=== PATIENT | male | born 1955 | race Caucasian/White ===

== ENCOUNTER → 2016-10-25 07:59 | Day surgery (SDC) | payer OTHER ==
[~2016-10-25 07:59] MED LIST: Acetaminophen TAB* 325 MG PO PRN; Buffered Lidocaine 1% SYR 3ML* 3 ML/SYR SYRINGE INTRADERM ONE; Midazolam* 1 MG/ML 2 ML VIAL (2 MG) ONE; fentaNYL* 50 MCG/ML 2 ML VIAL (100 MCG VIAL) ONE
[2016-10-25 10:05] VITALS: BP 142/83
--- NOTE | 2016-10-26 01:27 | OP ---
DATE OF OPERATION: 10/25/16 - [facility] DATE OF : 53 SURGEON: Kyle Hartman MD ANESTHESIOLOGIST: Toño Child MD ANESTHESIA: Monitored anesthesia care. PRE-OP DIAGNOSIS: Cataract of the right eye. POST-OP DIAGNOSIS: Cataract of the right eye. OPERATIVE PROCEDURE: Cataract extraction of the right eye. IMPLANTS: AU00T0 17.5 diopter lens to the right eye. COMPLICATIONS: None. DESCRIPTION OF PROCEDURE: The patient was given phenylephrine 2.5% and cyclopentolate 1% eye drops to the operative eye in the preoperative area. The patient was brought to the operating room, where a time-out was taken to identify the correct patient, site and side of the surgery. The patient's right eye was prepped and draped in the usual sterile fashion with 5% Betadine. A second time- out was taken to verify the correct patient, site, and side of surgery and correct lens selection. A lid speculum was placed to the right eye. A 1-mm paracentesis blade was used to make a clear corneal incision in the superotemporal position. Preservative-free 1% lidocaine was injected into the anterior chamber. DuoVisc was then injected into the anterior chamber. A 2.75-mm keratome blade was used to make a triplanar incision at the inferotemporal position. A cystotome was used to initiate a capsulorrhexis, which was completed with Utrata forceps in a continuous and curvilinear manner. Hydrodissection of the lens was then performed with a BSS on a cannula. The lens could be spun in the capsular bag. The phacoemulsification handpiece was then used with a wjngoy-aso-vudrorc technique to remove the nucleus in its entirety with 12.79 CDE. The I/A handpiece was then used to remove the residual cortical lens material. The DuoVisc was then injected to inflate the capsular bag. The planned AU00T0 17.5 diopter lens was then injected into the capsular bag. The residual DuoVisc was then removed from the eye with the I/A handpiece. The corneal incisions were then hydrated and no leaks occurred at physiologic pressure around 20 mmHg per palpation. The lid speculum was then removed and drapes removed. Maxitrol ointment was then placed to the surface of the operative eye. An adhesive patch and shield were then placed to the operative eye. The patient was taken to the postoperative area in stable condition. [id number]/[facility] #: [id number] LUKE
== END | disposition home or self-care (01) ==
LOC: OREAST 07:59
PROVIDERS: ATTEND Student in an Organized Health Care Education/Training Program
DX: H25.12 Age-related nuclear cataract, left eye (principal); H43.813 Vitreous degeneration, bilateral; I10 Essential (primary) hypertension; J45.909 Unspecified asthma, uncomplicated
CPT/HCPCS: J2250; J3010; V2632

== ENCOUNTER → 2016-11-01 09:27 | Day surgery (SDC) | payer OTHER ==
[~2016-11-01 09:27] MED LIST changes: +Cyclopentolate 1% OPTH.SOL* 2 ML BTL ONE; +Flurbiprofen 0.03% OPTH.SOL* 2.5 ML BTL ONE; +Lidocaine 1% MPF* 2 ML VIAL ONE; -Midazolam* 1 MG/ML 2 ML VIAL (2 MG) ONE; +Midazolam* 1 MG/ML 5 ML VIAL (5 MG) ONE; +Neomycin/Polymy/Dex OPHTH.OIN* 3.5 GM ONE; +Phenylephrine 2.5% OPTH.SOL* 2 ML BTL ONE; +Povidone Iodine 5% OPTH* 30 ML BTL ONE; +Tetracaine 0.5% OPTH.SOL 4 ML* 1 DROP BTL ONE; +acetaZOLAMIDE TAB* 250 MG ONE
[2016-11-01 12:10] VITALS: BP 157/82
--- NOTE | 2016-11-02 00:56 | OP ---
DATE OF OPERATION: 11/01/16 - [facility] DATE OF : 53 SURGEON: Kyle Hartman MD ANESTHESIOLOGIST: Samson Russo MD ANESTHESIA: Monitored anesthesia care. PRE-OP DIAGNOSIS: Cataract of left eye. POST-OP DIAGNOSIS: Cataract of left eye. OPERATIVE PROCEDURE: Cataract extraction of the left eye. IMPLANTS: SN60WF 18.0 diopter lens to the left eye. COMPLICATIONS: None. DESCRIPTION OF PROCEDURE: The patient was given phenylephrine 2.5% and cyclopentolate 1% eye drops to the operative eye in the preoperative area. The patient was brought to the operating room, where a time-out was taken to identify the correct patient, site and side of the surgery. The patient's left eye was prepped and draped in the usual sterile fashion with 5% Betadine. A second time- out was taken to verify the correct patient, site and side of the surgery, and correct lens selection. A lid speculum was placed to the left eye. A 1-mm paracentesis blade was used to make a clear corneal incision in the inferotemporal position. Preservative-free 1% lidocaine was injected into the anterior chamber. DuoVisc was then injected into the anterior chamber. A 2.75-mm keratome blade was used to make a triplanar incision at the superotemporal position. A cystotome was used to initiate a capsulorrhexis, which was completed with Utrata forceps in a continuous and curvilinear manner. Hydrodissection of the lens was then performed with BSS on a cannula. The lens could be spun in the capsular bag. The phacoemulsification handpiece was then used in a aifizk-pre-dzyllzv technique to remove the nucleus in its entirety with 12.34 CDE. The I/A handpiece then was used to remove the residual cortical lens material. DuoVisc was then injected to inflate the capsular bag. The planned SN60WF 18.0 diopter lens was then injected into the capsular bag. The residual DuoVisc was then removed from the eye with the I/A handpiece. The corneal incisions were then hydrated and no leaks occurred at physiologic pressure around 20 mmHg per palpation. The lid speculum was then removed and drapes removed. Maxitrol ointment was then placed on the surface of the operative eye. An adhesive patch and shield were then placed on the operative eye. The patient was taken to the postoperative area in stable condition. [id number]/[facility] #: [id number]
== END | disposition home or self-care (01) ==
LOC: OREAST 09:27
PROVIDERS: ATTEND Student in an Organized Health Care Education/Training Program
DX: H25.12 Age-related nuclear cataract, left eye (principal); H43.813 Vitreous degeneration, bilateral; I10 Essential (primary) hypertension; J45.909 Unspecified asthma, uncomplicated; E66.01 Morbid (severe) obesity due to excess calories
CPT/HCPCS: A9270-GY; J2250; J3010; V2632

== ENCOUNTER 2021-04-22 18:39 | Observation (INO) ==
[2021-04-22 19:39] LABS: ABS Eosinophils 0.2 10^3/ul (0-0.6); ABS Lymphocytes 1.5 10^3/ul (1.0-4.8); ABS Neutrophils 6.6 10^3/ul (1.5-7.7); Eosinophil % 1.7 %; Hematocrit 45 % (42-52); Hemoglobin 14.7 g/dL (14.0-18.0); Lymphocyte % 16.2 %; Mean Corpuscular HGB Conc 33 g/dL (31-36); Mean Corpuscular Hemoglobin 30 pg (27-31); Mean Corpuscular Volume 92 fL (80-94); Mean Platelet Volume 7.5 fL (7.4-10.4); Platelet Count 296 10^3/uL (150-450); Red Cell Distribution Width 15 % (10-15); White Blood Count 9.4 10^3/uL (3.5-10.8)
[2021-04-22 19:51] LABS: INR 1.04 (0.86-1.15)
[2021-04-22 19:57] LABS: Albumin 4.5 g/dL (3.2-5.2); Albumin/Globulin Ratio 1.5 (1-3); Calcium 9.2 mg/dL (8.6-10.3); EGFR African American 51.8 (>60); EGFR Non-African American 42.8 (>60); Potassium 4.8 mmol/L (3.5-5.0); Total Bilirubin 0.4 mg/dL (0.2-1.0); Total Protein 7.5 g/dL (6.4-8.9)
[2021-04-22 19:59] LABS: Troponin I 0.01 ng/mL (<0.03)
[2021-04-22] MEDS ORDERED: HYDROcodone/ACETAMIN 5/325 mg TAB PO PRN (23:28)
[2021-04-22] MEDS: Enoxaparin 40 MG/0.4 ML SYR SUBCUT SCH (23:41)
[2021-04-23 03:39] LABS: ABS Eosinophils 0.2 10^3/ul (0-0.6); ABS Lymphocytes 1.8 10^3/ul (1.0-4.8); ABS Monocytes 0.7 10^3/ul (0-0.8); ABS Neutrophils 6.1 10^3/ul (1.5-7.7); Eosinophil % 2.3 %; Hematocrit 45 % (42-52); Hemoglobin 14.8 g/dL (14.0-18.0); Lymphocyte % 20.2 %; Mean Corpuscular HGB Conc 33 g/dL (31-36); Mean Corpuscular Hemoglobin 30 pg (27-31); Mean Corpuscular Volume 92 fL (80-94); Mean Platelet Volume 7.6 fL (7.4-10.4); Platelet Count 277 10^3/uL (150-450); Red Blood Count 4.86 10^6 /uL (4.18-5.48); Red Cell Distribution Width 14 % (10-15); White Blood Count 8.8 10^3/uL (3.5-10.8)
[2021-04-23 03:53] LABS: Calcium 9.1 mg/dL (8.6-10.3); EGFR African American 58.5 (>60); EGFR Non-African American 48.3 (>60); HDL Cholesterol 36.8 mg/dL; Potassium 4.2 mmol/L (3.5-5.0)
[2021-04-23 03:54] LABS: Troponin I 0.01 ng/mL (<0.03)
[2021-04-23] MEDS ORDERED: Perflutren Lipid Microsphere 3 ML VIAL ONE (08:01)
[2021-04-23] MEDS: Potassium Chlor 20 meq TAB.ER PO SCH ×2 (09:14→20:01)
[2021-04-23] MEDS ORDERED: Aminophylline 25 MG/ML VIAL ONE (09:49)
[2021-04-23] MEDS ORDERED: Regadenoson 0.4 MG/5 ML SYRINGE ONE (09:49)
[2021-04-23] MEDS: Enoxaparin 40 MG/0.4 ML SYR SUBCUT SCH (20:01)
[2021-04-24 06:58] LABS: ABS Eosinophils 0.1 10^3/ul (0-0.6); ABS Lymphocytes 2.1 10^3/ul (1.0-4.8); ABS Monocytes 0.8 10^3/ul (0-0.8); ABS Neutrophils 6.5 10^3/ul (1.5-7.7); Eosinophil % 1.4 %; Hematocrit 43 % (42-52); Hemoglobin 14.3 g/dL (14.0-18.0); Mean Corpuscular HGB Conc 34 g/dL (31-36); Mean Corpuscular Hemoglobin 30 pg (27-31); Mean Corpuscular Volume 91 fL (80-94); Mean Platelet Volume 7.8 fL (7.4-10.4); Platelet Count 286 10^3/uL (150-450); Red Blood Count 4.69 10^6 /uL (4.18-5.48); Red Cell Distribution Width 14 % (10-15); White Blood Count 9.6 10^3/uL (3.5-10.8)
[2021-04-24 07:14] LABS: EGFR African American 63.4 (>60); EGFR Non-African American 52.4 (>60); HDL Cholesterol 34.9 mg/dL
[2021-04-24] MEDS: Potassium Chlor 20 meq TAB.ER PO SCH (08:51)
[2021-04-24 17:26] VITALS: BP 124/70
== END 2021-04-24 18:30 | disposition home or self-care (01) ==
LOC: ED 18:39 → SUATTDRO 23:54 → MEDTELE 23:54 → INTOOBSV 23:54
PROVIDERS: ADMIT Internal Medicine; ATTEND Hospitalist

== ENCOUNTER 2022-04-26 11:46 | Inpatient (IN) ==
[2022-04-27] MEDS ORDERED: Magnesium Hydroxide LIQ 30 ML UDC PO PRN (15:11)
[2022-04-27] MEDS ORDERED: Senna TAB 8.6 mg TAB PO PRN (15:11)
[2022-04-28 05:46] LABS: Hematocrit 40 % (42-52); Mean Corpuscular HGB Conc 33 g/dL (31-36); Mean Corpuscular Hemoglobin 29 pg (27-31); Mean Corpuscular Volume 90 fL (80-94); Mean Platelet Volume 7.9 fL (7.4-10.4); Platelet Count 308 10^3/uL (150-450); Red Blood Count 4.47 10^6 /uL (4.18-5.48); Red Cell Distribution Width 15 % (10-15)
[2022-04-28 06:32] LABS: Albumin 3.5 g/dL (3.2-5.2); Albumin/Globulin Ratio 1.3 (1-3); Calcium 9.1 mg/dL (8.6-10.3); Globulin 2.7 g/dL (2-4); Potassium 4.4 mmol/L (3.5-5.0); Total Bilirubin 0.5 mg/dL (0.2-1.0); Total Protein 6.2 g/dL (6.4-8.9)
[2022-04-28 07:39] LABS: ABS Basophils 0.1 10^3/ul (0-0.2); ABS Eosinophils 0.2 10^3/ul (0-0.6); ABS Lymphocytes 1.7 10^3/ul (1.0-4.8); ABS Monocytes 0.9 10^3/ul (0-0.8); ABS Neutrophils 5.1 10^3/ul (1.5-7.7); Eosinophil % 2.1 %; Lymphocyte % 21.4 %; Nucleated Red Blood Cells % 0.1
[2022-04-28] MEDS: Aspirin EC 81 mg TAB.EC (enteric coated) PO SCH (09:47)
[2022-04-28] MEDS: CMCS: Prasugrel 10 mg TAB (NF) PO SCH (09:49)
[2022-04-28] MEDS: NFT: DAPAGLIFLOZIN 10 MG TAB (NF) PO SCH (11:35)
[2022-04-28] MEDS: Heparin 5000 UNITS/ML 1 mL VIAL SUBCUT SCH (20:20)
[2022-04-28] MEDS: HYDROcodone/ACETAMIN 5/325 mg TAB PO PRN (20:20)
[2022-04-29] MEDS: CMCS: Prasugrel 10 mg TAB (NF) PO SCH (09:22)
[2022-04-29] MEDS: Aspirin EC 81 mg TAB.EC (enteric coated) PO SCH (09:24)
[2022-04-29] MEDS: NFT: DAPAGLIFLOZIN 10 MG TAB (NF) PO SCH (09:25)
[2022-04-29] MEDS: Heparin 5000 UNITS/ML 1 mL VIAL SUBCUT SCH ×2 (10:35→20:59)
[2022-04-29] MEDS: HYDROcodone/ACETAMIN 5/325 mg TAB PO PRN (20:58)
[2022-04-30] MEDS: Aspirin EC 81 mg TAB.EC (enteric coated) PO SCH (08:38)
[2022-04-30] MEDS: Heparin 5000 UNITS/ML 1 mL VIAL SUBCUT SCH ×2 (08:38→20:50)
[2022-04-30] MEDS: CMCS: Prasugrel 10 mg TAB (NF) PO SCH (08:39)
[2022-04-30] MEDS: NFT: DAPAGLIFLOZIN 10 MG TAB (NF) PO SCH (08:39)
[2022-04-30] MEDS: Mometasone/Formoter 100/5 MDI INH SCH ×2 (14:35→20:48)
[2022-04-30] MEDS: HYDROcodone/ACETAMIN 5/325 mg TAB PO PRN (20:52)
[2022-05-01] MEDS: Mometasone/Formoter 100/5 MDI INH SCH ×2 (06:00→18:38)
[2022-05-01] MEDS ORDERED: Polyethylene Glycol 3350 17 GM PACKET PO PRN (09:07)
[2022-05-01] MEDS ORDERED: Polyethylene Glycol 3350 17 GM PACKET PO ONE (09:11)
[2022-05-01] MEDS: Aspirin EC 81 mg TAB.EC (enteric coated) PO SCH (10:22)
[2022-05-01] MEDS: CMCS: Prasugrel 10 mg TAB (NF) PO SCH (10:22)
[2022-05-01] MEDS: NFT: DAPAGLIFLOZIN 10 MG TAB (NF) PO SCH (10:23)
[2022-05-01] MEDS: Heparin 5000 UNITS/ML 1 mL VIAL SUBCUT SCH ×2 (10:23→20:59)
[2022-05-01] MEDS: HYDROcodone/ACETAMIN 5/325 mg TAB PO PRN (20:58)
[2022-05-01] MEDS: Senna TAB 8.6 mg TAB PO SCH (20:59)
[2022-05-02] MEDS: CMCS: Prasugrel 10 mg TAB (NF) PO SCH (08:05)
[2022-05-02] MEDS: Aspirin EC 81 mg TAB.EC (enteric coated) PO SCH (08:06)
[2022-05-02] MEDS: NFT: DAPAGLIFLOZIN 10 MG TAB (NF) PO SCH (08:12)
[2022-05-02] MEDS: Heparin 5000 UNITS/ML 1 mL VIAL SUBCUT SCH ×2 (08:13→20:58)
[2022-05-02] MEDS: Mometasone/Formoter 100/5 MDI INH SCH ×2 (08:14→19:52)
[2022-05-02] MEDS: HYDROcodone/ACETAMIN 5/325 mg TAB PO PRN (20:58)
[2022-05-02] MEDS: Senna TAB 8.6 mg TAB PO SCH (20:58)
[2022-05-03] MEDS: Mometasone/Formoter 100/5 MDI INH SCH ×2 (09:28→19:30)
[2022-05-03] MEDS: HYDROcodone/ACETAMIN 5/325 mg TAB PO PRN ×2 (09:30→21:29)
[2022-05-03] MEDS: Heparin 5000 UNITS/ML 1 mL VIAL SUBCUT SCH ×2 (09:31→21:32)
[2022-05-03] MEDS: Aspirin EC 81 mg TAB.EC (enteric coated) PO SCH (09:33)
[2022-05-03] MEDS: CMCS: Prasugrel 10 mg TAB (NF) PO SCH (09:34)
[2022-05-03] MEDS: NFT: DAPAGLIFLOZIN 10 MG TAB (NF) PO SCH (09:38)
[2022-05-03] MEDS: Senna TAB 8.6 mg TAB PO SCH (21:28)
[2022-05-04] MEDS: Mometasone/Formoter 100/5 MDI INH SCH ×2 (06:21→18:54)
[2022-05-04] MEDS: CMCS: Prasugrel 10 mg TAB (NF) PO SCH (09:24)
[2022-05-04] MEDS: HYDROcodone/ACETAMIN 5/325 mg TAB PO PRN ×2 (09:24→18:52)
[2022-05-04] MEDS: Aspirin EC 81 mg TAB.EC (enteric coated) PO SCH (09:24)
[2022-05-04] MEDS: Heparin 5000 UNITS/ML 1 mL VIAL SUBCUT SCH ×2 (09:25→21:26)
[2022-05-04] MEDS: NFT: DAPAGLIFLOZIN 10 MG TAB (NF) PO SCH (11:16)
[2022-05-04] MEDS: Senna TAB 8.6 mg TAB PO SCH (21:24)
[2022-05-05] MEDS: HYDROcodone/ACETAMIN 5/325 mg TAB PO PRN ×2 (00:44→23:02)
[2022-05-05 05:59] LABS: ABS Basophils 0.1 10^3/ul (0-0.2); ABS Eosinophils 0.2 10^3/ul (0-0.6); ABS Lymphocytes 1.4 10^3/ul (1.0-4.8); ABS Monocytes 0.8 10^3/ul (0-0.8); ABS Neutrophils 4.4 10^3/ul (1.5-7.7); Eosinophil % 2.4 %; Hematocrit 39 % (42-52); Hemoglobin 12.7 g/dL (14.0-18.0); Mean Corpuscular HGB Conc 32 g/dL (31-36); Mean Corpuscular Hemoglobin 29 pg (27-31); Mean Corpuscular Volume 91 fL (80-94); Mean Platelet Volume 8.2 fL (7.4-10.4); Nucleated Red Blood Cells % 0.1; Platelet Count 227 10^3/uL (150-450); Red Blood Count 4.33 10^6 /uL (4.18-5.48); Red Cell Distribution Width 15 % (10-15); White Blood Count 6.8 10^3/uL (3.5-10.8)
[2022-05-05] MEDS: Mometasone/Formoter 100/5 MDI INH SCH ×2 (06:09→20:01)
[2022-05-05 06:21] LABS: Albumin 3.5 g/dL (3.2-5.2); Albumin/Globulin Ratio 1.4 (1-3); Globulin 2.5 g/dL (2-4); Total Bilirubin 0.4 mg/dL (0.2-1.0)
[2022-05-05 06:24] LABS: Potassium 5.2 mmol/L (3.5-5.0)
[2022-05-05] MEDS: Heparin 5000 UNITS/ML 1 mL VIAL SUBCUT SCH ×2 (10:09→20:03)
[2022-05-05] MEDS: Aspirin EC 81 mg TAB.EC (enteric coated) PO SCH (10:12)
[2022-05-05] MEDS: CMCS: Prasugrel 10 mg TAB (NF) PO SCH (10:13)
[2022-05-05] MEDS: NFT: DAPAGLIFLOZIN 10 MG TAB (NF) PO SCH (10:16)
[2022-05-05] MEDS ORDERED: Hemorrhoidal OINT 1 TUBE PR PRN (19:10)
[2022-05-05] MEDS: Senna TAB 8.6 mg TAB PO SCH (20:03)
[2022-05-06] MEDS: Aspirin EC 81 mg TAB.EC (enteric coated) PO SCH (08:11)
[2022-05-06] MEDS: CMCS: Prasugrel 10 mg TAB (NF) PO SCH (08:12)
[2022-05-06] MEDS: Mometasone/Formoter 100/5 MDI INH SCH ×2 (08:13→20:41)
[2022-05-06] MEDS: NFT: DAPAGLIFLOZIN 10 MG TAB (NF) PO SCH (08:13)
[2022-05-06] MEDS: Heparin 5000 UNITS/ML 1 mL VIAL SUBCUT SCH ×2 (08:15→20:34)
[2022-05-06] MEDS: Senna TAB 8.6 mg TAB PO SCH (20:34)
[2022-05-06] MEDS: HYDROcodone/ACETAMIN 5/325 mg TAB PO PRN (23:27)
[2022-05-07 05:32] VITALS: BP 136/72
[2022-05-07] MEDS: Mometasone/Formoter 100/5 MDI INH SCH (07:44)
[2022-05-07] MEDS: Aspirin EC 81 mg TAB.EC (enteric coated) PO SCH (07:45)
[2022-05-07] MEDS: CMCS: Prasugrel 10 mg TAB (NF) PO SCH (07:45)
[2022-05-07] MEDS: Heparin 5000 UNITS/ML 1 mL VIAL SUBCUT SCH (07:45)
[2022-05-07] MEDS: NFT: DAPAGLIFLOZIN 10 MG TAB (NF) PO SCH (07:46)
== END 2022-05-07 13:00 | disposition home health service (06) | DRG 281 ==
LOC: PMRU 04-27 14:26
PROVIDERS: ADMIT Physical Medicine & Rehabilitation; ATTEND Physical Medicine & Rehabilitation

== ENCOUNTER 2022-06-06 09:19 | Observation (INO) ==
[2022-06-06 10:13] LABS: Hematocrit 36 % (42-52); Hemoglobin 11.7 g/dL (14.0-18.0); Mean Corpuscular HGB Conc 32 g/dL (31-36); Mean Corpuscular Hemoglobin 28 pg (27-31); Mean Corpuscular Volume 88 fL (80-94); Red Blood Count 4.14 10^6 /uL (4.18-5.48); Red Cell Distribution Width 15 % (10-15)
[2022-06-06 10:22] LABS: High Sens Troponin Baseline 10 pg/mL (<20)
[2022-06-06 10:32] LABS: ABS Basophils 0.1 10^3/ul (0-0.2); ABS Eosinophils 0.2 10^3/ul (0-0.6); ABS Lymphocytes 1.5 10^3/ul (1.0-4.8); ABS Neutrophils 11.9 10^3/ul (1.5-7.7); Eosinophil % 1.4 %; Nucleated Red Blood Cells % 0.1; Platelet Count Platelets clumped. 10^3/uL (150-450); White Blood Count 14.6 10^3/uL (3.5-10.8)
[2022-06-06 11:05] LABS: ALT 16 U/L (7-52); Albumin 3.3 g/dL (3.2-5.2); Alkaline Phosphatase 70 U/L (35-149); Blood Urea Nitrogen 31 mg/dL (6-24); CO2 Carbon Dioxide 27 mmol/L (22-32); Calcium 8.8 mg/dL (8.6-10.3); Chloride 101 mmol/L (101-111); Globulin 3.3 g/dL (2-4); Glucose 121 mg/dL (70-100); Sodium 139 mmol/L (135-145); Total Protein 6.6 g/dL (6.4-8.9); eGFR CKD-EPI 63.1 (>60)
[2022-06-06 11:10] LABS: Anion Gap 11 mmol/L (2-11)
[2022-06-06 11:18] LABS: TSH Ultra Thyroid Stim Horm 1.89 mcIU/mL (0.34-5.60)
[2022-06-06] MEDS ORDERED: Nitro 2% OINT (Nitroglycerin) 1 INCH/PAK TOPICAL ONE (12:01)
[2022-06-06 12:04] LABS: Magnesium 1.6 mg/dL (1.9-2.7); Potassium Redraw 3.9 mmol/L (3.5-5.0)
[2022-06-06] MEDS ORDERED: Iohexol 350 (CONTRAST) 500 ML MDV IV ONE (12:33)
[2022-06-06] MEDS ORDERED: Al Hydrox/Mg Hydrox/Simet LIQ 30 ML UDC PO ONE (12:45)
[2022-06-06] MEDS ORDERED: Magnesium Sulfate 2 gm BAG 2 GM/50 ML BAG IVPB ONE ×2 (13:54→17:04)
[2022-06-06] MEDS ORDERED: Acetaminophen IV 1 GM/100ML 1,000 MG/100 ML BAG IV ONE (13:55)
[2022-06-06] MEDS ORDERED: Lactated Ringers 1000 ml BAG 1,000 ML IV SCH ×3 (15:00→17:00)
[2022-06-06] MEDS ORDERED: Senna TAB 8.6 mg TAB PO PRN (16:49)
[2022-06-06] MEDS ORDERED: Enoxaparin 40 MG/0.4 ML SYR SUBCUT SCH (18:00)
[2022-06-06 18:02] LABS: C Reactive Protein 64.62 mg/L (<8.01)
[2022-06-06] MEDS: Polyethylene Glycol 3350 17 GM PACKET PO SCH (19:40)
[2022-06-06] MEDS: HYDROcodone/ACETAMIN 5/325 mg TAB PO PRN (21:36)
[2022-06-06 22:09] LABS: Urine Appearance Cloudy; Urine Bacteria 1+ (Absent); Urine Bilirubin Negative (Negative); Urine Blood 1+ (Negative); Urine Color Yellow; Urine Glucose Negative (Negative); Urine Ketones Negative (Negative); Urine Nitrite Positive (Negative); Urine Protein 1+(30 mg/dL) (Negative); Urine Red Blood Cell 3+(>10/hpf) (Absent); Urine Squamous Epithelial Cell Present (Absent); Urine Urobilinogen Negative (Negative); Urine White Blood Cell 3+(>20/hpf) (Absent)
[2022-06-07 06:17] LABS: ABS Eosinophils 0.1 10^3/ul (0-0.6); ABS Lymphocytes 1.4 10^3/ul (1.0-4.8); ABS Monocytes 1.1 10^3/ul (0-0.8); ABS Neutrophils 6.4 10^3/ul (1.5-7.7); Hematocrit 31 % (42-52); Hemoglobin 10.2 g/dL (14.0-18.0); Lymphocyte % 15.8 %; Mean Corpuscular HGB Conc 33 g/dL (31-36); Mean Corpuscular Hemoglobin 29 pg (27-31); Mean Corpuscular Volume 88 fL (80-94); Mean Platelet Volume 7.3 fL (7.4-10.4); Platelet Count 333 10^3/uL (150-450); Red Blood Count 3.56 10^6 /uL (4.18-5.48); Red Cell Distribution Width 15 % (10-15)
[2022-06-07 08:04] LABS: Calcium 8.4 mg/dL (8.6-10.3); Potassium 4.3 mmol/L (3.5-5.0); eGFR CKD-EPI 61.3 (>60)
[2022-06-07] MEDS ORDERED: CMCS: Prasugrel 10 mg TAB (NF) PO SCH (09:00)
[2022-06-07 09:02] LABS: Magnesium 2.2 mg/dL (1.9-2.7)
[2022-06-07] MEDS: Polyethylene Glycol 3350 17 GM PACKET PO SCH (09:53)
[2022-06-07] MEDS: HYDROcodone/ACETAMIN 5/325 mg TAB PO PRN (10:09)
[2022-06-07 15:53] VITALS: BP 117/68
== END 2022-06-07 18:00 | disposition home or self-care (01) ==
LOC: ED 09:19 → EDHOLD 09:19 → MEDTELE 22:05
PROVIDERS: ADMIT Internal Medicine; ATTEND Internal Medicine

== ENCOUNTER 2022-07-28 17:08 | Inpatient (IN) ==
[2022-07-28] MEDS ORDERED: Lactated Ringers SEPSIS* BAG 2,120 ML IV ONE (19:51)
[2022-07-28] MEDS ORDERED: fentaNYL 100 mcg/2 ml 50 MCG/ML VIAL IV ONE (19:53)
[2022-07-28 20:46] LABS: ABS Lymphocytes 0.6 10^3/ul (1.0-4.8); ABS Monocytes 0.9 10^3/ul (0-0.8); ABS Neutrophils 13.7 10^3/ul (1.5-7.7); Eosinophil % 0.2 %; Hematocrit 41 % (42-52); Hemoglobin 13.2 g/dL (14.0-18.0); Lymphocyte % 4.2 %; Mean Corpuscular HGB Conc 32 g/dL (31-36); Mean Corpuscular Hemoglobin 27 pg (27-31); Mean Corpuscular Volume 84 fL (80-94); Mean Platelet Volume 7.1 fL (7.4-10.4); Platelet Count 390 10^3/uL (150-450); Red Blood Count 4.92 10^6 /uL (4.18-5.48); Red Cell Distribution Width 15 % (10-15); White Blood Count 15.2 10^3/uL (3.5-10.8)
[2022-07-28 21:12] LABS: INR 1.03 (0.89-1.11)
[2022-07-28] MEDS ORDERED: cefTRIAXone 1 gm/50 mL D5W 1 GM/50 ML BAG IV ONE (21:12)
[2022-07-28 21:30] LABS: Albumin 4.2 g/dL (3.2-5.2); Albumin/Globulin Ratio 1.4 (1-3); Calcium 9.4 mg/dL (8.6-10.3); Globulin 2.9 g/dL (2-4); Potassium 4.4 mmol/L (3.5-5.0); Total Bilirubin 0.4 mg/dL (0.2-1.0); Total Protein 7.1 g/dL (6.4-8.9); eGFR CKD-EPI 38.4 (>60)
[2022-07-28 22:01] LABS: C Reactive Protein 72.25 mg/L (<8.01)
[2022-07-28 22:19] LABS: High Sensitivity Troponin 1 Hr 14 pg/mL (<20)
[2022-07-28 23:49] LABS: Urine Color Red
[2022-07-28 23:50] LABS: Urine Appearance Turbid
[2022-07-29 00:21] LABS: Urine Specific Gravity 1.019 (1.002-1.030)
[2022-07-29] MEDS ORDERED: Ondansetron 4 mg VIAL 2 MG/ML 2 ml VIAL IV PRN (00:28)
[2022-07-29] MEDS ORDERED: Senna TAB 8.6 mg TAB PO PRN (00:32)
[2022-07-29] MEDS ORDERED: Magnesium Hydroxide LIQ 30 ML UDC PO PRN (00:32)
[2022-07-29] MEDS ORDERED: Polyethylene Glycol 3350 17 GM PACKET PO PRN (00:32)
[2022-07-29 00:50] LABS: Urine Bacteria 3+ (Absent); Urine Red Blood Cell 3+(>10/hpf) (Absent); Urine Squamous Epithelial Cell Present (Absent); Urine White Blood Cell 3+(>20/hpf) (Absent)
[2022-07-29] MEDS ORDERED: NS 0.9% 1000 ml BAG 1,000 ML IV ONE (05:29)
[2022-07-29 07:39] LABS: Hematocrit 36 % (42-52); Hemoglobin 11.3 g/dL (14.0-18.0); Mean Corpuscular HGB Conc 32 g/dL (31-36); Mean Corpuscular Hemoglobin 27 pg (27-31); Mean Corpuscular Volume 84 fL (80-94); Mean Platelet Volume 6.8 fL (7.4-10.4); Platelet Count 331 10^3/uL (150-450); Red Blood Count 4.23 10^6 /uL (4.18-5.48); Red Cell Distribution Width 15 % (10-15); White Blood Count 14.2 10^3/uL (3.5-10.8)
[2022-07-29] MEDS: Magnesium Hydroxide LIQ 30 ML UDC PO SCH ×2 (09:50→22:46)
[2022-07-29] MEDS: CMCS: Prasugrel 10 mg TAB (NF) PO SCH (09:50)
[2022-07-29] MEDS: Aspirin EC 81 mg TAB.EC (enteric coated) PO SCH (09:50)
[2022-07-29 10:00] LABS: ABS Monocytes 1.6 10^3/ul (0-0.8); ABS Neutrophils 11.5 10^3/ul (1.5-7.7); Eosinophil % 0.1 %; Lymphocyte % 7.4 %
[2022-07-29 10:29] LABS: Calcium 8.4 mg/dL (8.6-10.3); Potassium 4.4 mmol/L (3.5-5.0); eGFR CKD-EPI 34.4 (>60)
[2022-07-29] MEDS: Cefepime 2 GM in Dextrose 2 GM/50 ML BAG IV SCH ×2 (11:33→22:59)
[2022-07-29] MEDS: HYDROcodone/ACETAMIN 5/325 mg TAB PO PRN ×2 (11:35→22:49)
[2022-07-29] MEDS: Mometasone/Formoter 100/5 MDI INH SCH ×2 (13:56→20:22)
[2022-07-29] MEDS: NS 0.9% 1000 ml BAG 1,000 ML IV SCH (14:42)
[2022-07-29] MEDS ORDERED: cefTRIAXone 2 gm/50 mL D5W 2 GM/50 ML BAG IV SCH (23:00)
[2022-07-30] MEDS: NS 0.9% 1000 ml BAG 1,000 ML IV SCH ×2 (04:17→12:15)
[2022-07-30 06:12] LABS: Hematocrit 36 % (42-52); Hemoglobin 11.6 g/dL (14.0-18.0); Mean Corpuscular HGB Conc 32 g/dL (31-36); Mean Corpuscular Hemoglobin 27 pg (27-31); Mean Corpuscular Volume 85 fL (80-94); Mean Platelet Volume 7.5 fL (7.4-10.4); Platelet Count 301 10^3/uL (150-450); Red Blood Count 4.28 10^6 /uL (4.18-5.48); Red Cell Distribution Width 15 % (10-15); White Blood Count 14.5 10^3/uL (3.5-10.8)
[2022-07-30 06:15] LABS: ABS Eosinophils 0.1 10^3/ul (0-0.6); ABS Lymphocytes 1.1 10^3/ul (1.0-4.8); ABS Monocytes 1.6 10^3/ul (0-0.8); ABS Neutrophils 11.7 10^3/ul (1.5-7.7); Eosinophil % 0.4 %; Lymphocyte % 7.4 %
[2022-07-30 06:24] LABS: Calcium 8.4 mg/dL (8.6-10.3); Potassium 4.5 mmol/L (3.5-5.0); eGFR CKD-EPI 25.2 (>60)
[2022-07-30] MEDS ORDERED: NS 0.9% 1000 ml BAG 1,000 ML IV ONE (07:17)
[2022-07-30] MEDS: Mometasone/Formoter 100/5 MDI INH SCH ×2 (07:43→19:40)
[2022-07-30] MEDS: Aspirin EC 81 mg TAB.EC (enteric coated) PO SCH (08:20)
[2022-07-30] MEDS: CMCS: Prasugrel 10 mg TAB (NF) PO SCH (08:21)
[2022-07-30] MEDS: Magnesium Hydroxide LIQ 30 ML UDC PO SCH ×2 (08:21→21:44)
[2022-07-30] MEDS: Cefepime 2 GM in Dextrose 2 GM/50 ML BAG IV SCH (12:12)
[2022-07-30] MEDS: HYDROcodone/ACETAMIN 5/325 mg TAB PO PRN (21:28)
[2022-07-30] MEDS: Cefepime 1 GM in Dextrose 1 GM/50 ML BAG IV SCH (23:24)
[2022-07-31] MEDS: Mometasone/Formoter 100/5 MDI INH SCH ×2 (07:16→20:16)
[2022-07-31 08:21] LABS: ABS Eosinophils 0.2 10^3/ul (0-0.6); ABS Lymphocytes 1.1 10^3/ul (1.0-4.8); ABS Monocytes 1.3 10^3/ul (0-0.8); Hematocrit 33 % (42-52); Hemoglobin 10.7 g/dL (14.0-18.0); Lymphocyte % 10.2 %; Mean Corpuscular HGB Conc 32 g/dL (31-36); Mean Corpuscular Hemoglobin 27 pg (27-31); Mean Corpuscular Volume 85 fL (80-94); Mean Platelet Volume 7.2 fL (7.4-10.4); Platelet Count 280 10^3/uL (150-450); Red Blood Count 3.94 10^6 /uL (4.18-5.48); Red Cell Distribution Width 15 % (10-15); White Blood Count 10.6 10^3/uL (3.5-10.8)
[2022-07-31] MEDS: HYDROcodone/ACETAMIN 5/325 mg TAB PO PRN (08:47)
[2022-07-31] MEDS: Magnesium Hydroxide LIQ 30 ML UDC PO SCH (08:52)
[2022-07-31] MEDS: Aspirin EC 81 mg TAB.EC (enteric coated) PO SCH (08:53)
[2022-07-31] MEDS: CMCS: Prasugrel 10 mg TAB (NF) PO SCH (08:53)
[2022-07-31 09:02] LABS: Calcium 8.2 mg/dL (8.6-10.3); Potassium 4.7 mmol/L (3.5-5.0); eGFR CKD-EPI 19.1 (>60)
[2022-07-31 10:00] LABS: PCO2 Arterial 43 mmHg (35-45); PO2 Arterial 99 mmHg (80-100)
[2022-07-31] MEDS: HYDROmorphone 0.5 MG/0.5 ML SYRINGE IV SLOW PU PRN ×2 (10:53→15:33)
[2022-07-31] MEDS: Cefepime 1 GM in Dextrose 1 GM/50 ML BAG IV SCH (10:58)
[2022-07-31 15:41] VITALS: BP 128/73
== END 2022-07-31 16:15 | disposition short-term general hospital (02) | DRG 689 ==
LOC: ED 17:08 → EDHOLD 07-29 00:28 → SUATTDRO 07-29 00:28 → MEDTELE 07-29 08:26
PROVIDERS: ADMIT Student in an Organized Health Care Education/Training Program; ATTEND Internal Medicine

== ENCOUNTER 2023-01-12 10:49 | Inpatient (IN) ==
[2023-01-12 12:57] LABS: ABS Eosinophils 0.1 10^3/uL (0.0-0.5); ABS Lymphocytes 1.2 10^3/uL (1.0-4.8); ABS Monocytes 1.3 10^3/uL (0.0-1.1); ABS Neutrophils 9.8 10^3/uL (1.5-7.6); Eosinophil % 0.6 %; Hematocrit 36.3 % (38-53); Hemoglobin 11.7 g/dL (13.2-16.3); Lymphocyte % 9.8 %; Mean Corpuscular Hemoglobin 25.6 pg (27-33); Mean Corpuscular Hgb Conc 32.2 g/dL (31-36); Mean Corpuscular Volume 79.3 fL (80-97); Mean Platelet Volume 7.1 fL (7.5-11.2); Platelet Count 501 10^3/uL (150-450); Red Blood Count 4.57 10^6/uL (4.06-5.63); Red Cell Distribution Width 16.7 % (12-17); White Blood Count 12.4 10^3/uL (3.6-10.2)
[2023-01-12 13:40] LABS: Albumin 3.7 g/dL (3.2-5.2); C Reactive Protein 141.73 mg/L (<8.01); Calcium 9.4 mg/dL (8.6-10.3); Creatinine, Serum 1.03 mg/dL (0.67-1.17); Globulin 3.7 g/dL (2-4); Potassium 4.2 mmol/L (3.5-5.0); Total Bilirubin 0.4 mg/dL (0.2-1.0); Total Protein 7.4 g/dL (6.4-8.9); eGFR CKD-EPI 79.1 (>60)
[2023-01-12] MEDS ORDERED: Iohexol 350 (CONTRAST) 500 ML MDV IV ONE (13:55)
[2023-01-12 14:23] LABS: Activated Partial Thrombo Time 29.6 seconds (26.0-38.0); INR 1.22 (0.88-1.18)
[2023-01-12 14:33] LABS: High Sensitivity Troponin 1 Hr 16 pg/mL (<20)
[2023-01-12] MEDS ORDERED: fentaNYL 100 mcg/2 ml 50 MCG/ML VIAL IV SLOW PU ONE (15:08)
[2023-01-12] MEDS ORDERED: Acetaminophen IV 1 GM/100ML 1,000 MG/100 ML BAG IV ONE (15:08)
[2023-01-12 15:15] LABS: Urine Appearance Clear; Urine Bilirubin Negative (Negative); Urine Blood Negative (Negative); Urine Color Yellow; Urine Glucose Negative (Negative); Urine Ketones Negative (Negative); Urine Nitrite Negative (Negative); Urine Protein 1+(30 mg/dL) (Negative); Urine Urobilinogen Negative (Negative)
[2023-01-12 15:24] LABS: Urine Bacteria Absent (Absent); Urine Red Blood Cell Absent (Absent); Urine White Blood Cell Trace(0-5/hpf) (Absent)
[2023-01-12] MEDS ORDERED: cefTRIAXone 2 gm/50 mL D5W 2 GM/50 ML BAG IV ONE (16:01)
[2023-01-12] MEDS ORDERED: Morphine 4 MG/ML VIAL (1 ml) IV ONE (18:12)
[2023-01-12] MEDS: Enoxaparin 40 MG/0.4 ML SYR SUBCUT SCH (18:17)
[2023-01-12] MEDS: HYDROcodone/ACETAMIN 5/325 mg TAB PO PRN (21:16)
[2023-01-12] MEDS: HYDROmorphone 1 MG/1 ML SYRINGE IV SLOW PU PRN (22:48)
[2023-01-13] MEDS: HYDROmorphone 1 MG/1 ML SYRINGE IV SLOW PU PRN ×4 (02:47→23:16)
[2023-01-13] MEDS: HYDROcodone/ACETAMIN 5/325 mg TAB PO PRN ×3 (04:55→18:13)
[2023-01-13 06:01] LABS: ABS Eosinophils 0.2 10^3/uL (0.0-0.5); ABS Lymphocytes 1.1 10^3/uL (1.0-4.8); ABS Monocytes 0.9 10^3/uL (0.0-1.1); Eosinophil % 2.5 %; Hematocrit 34.2 % (38-53); Hemoglobin 11.2 g/dL (13.2-16.3); Lymphocyte % 13.7 %; Mean Corpuscular Hemoglobin 26.1 pg (27-33); Mean Corpuscular Hgb Conc 32.7 g/dL (31-36); Mean Corpuscular Volume 79.9 fL (80-97); Mean Platelet Volume 6.9 fL (7.5-11.2); Platelet Count 430 10^3/uL (150-450); Red Blood Count 4.28 10^6/uL (4.06-5.63); Red Cell Distribution Width 17.2 % (12-17); White Blood Count 8.3 10^3/uL (3.6-10.2)
[2023-01-13 06:25] LABS: Calcium 8.8 mg/dL (8.6-10.3); Creatinine, Serum 0.98 mg/dL (0.67-1.17); Potassium 4.1 mmol/L (3.5-5.0)
[2023-01-13] MEDS ORDERED: PRAMIPEXOLE 0.25 MG PO SCH (09:00)
[2023-01-13] MEDS: Aspirin EC 81 mg TAB.EC (enteric coated) PO SCH (09:10)
[2023-01-13] MEDS: Enoxaparin 40 MG/0.4 ML SYR SUBCUT SCH (18:13)
[2023-01-14 06:49] LABS: Hemoglobin 11.4 g/dL (13.2-16.3); Mean Corpuscular Hemoglobin 25.8 pg (27-33); Mean Corpuscular Hgb Conc 32.5 g/dL (31-36); Mean Corpuscular Volume 79.4 fL (80-97); Platelet Count 482 10^3/uL (150-450); Red Blood Count 4.41 10^6/uL (4.06-5.63); Red Cell Distribution Width 16.8 % (12-17); White Blood Count 9.5 10^3/uL (3.6-10.2)
[2023-01-14 07:06] LABS: Calcium 8.9 mg/dL (8.6-10.3); Creatinine, Serum 0.89 mg/dL (0.67-1.17); Potassium 4.3 mmol/L (3.5-5.0); Uric Acid 7.3 mg/dL (4.4-7.6); eGFR CKD-EPI 93.3 (>60)
[2023-01-14] MEDS: HYDROmorphone 1 MG/1 ML SYRINGE IV SLOW PU PRN ×3 (07:19→21:36)
[2023-01-14] MEDS: Aspirin EC 81 mg TAB.EC (enteric coated) PO SCH (07:19)
[2023-01-14] MEDS ORDERED: HYDROmorphone 1 MG/1 ML SYRINGE IV SLOW PU ONE (15:17)
[2023-01-14] MEDS: Enoxaparin 40 MG/0.4 ML SYR SUBCUT SCH (17:22)
[2023-01-15] MEDS: HYDROmorphone 1 MG/1 ML SYRINGE IV SLOW PU PRN ×4 (08:22→23:48)
[2023-01-15] MEDS: Aspirin EC 81 mg TAB.EC (enteric coated) PO SCH (08:25)
[2023-01-15] MEDS: HYDROcodone/ACETAMIN 5/325 mg TAB PO PRN ×3 (09:34→23:41)
[2023-01-15] MEDS: Prasugrel 10 mg TAB (NF) PO SCH (11:20)
[2023-01-15] MEDS: Enoxaparin 40 MG/0.4 ML SYR SUBCUT SCH (18:30)
[2023-01-16] MEDS: Aspirin EC 81 mg TAB.EC (enteric coated) PO SCH (10:09)
[2023-01-16] MEDS: Prasugrel 10 mg TAB (NF) PO SCH (10:10)
[2023-01-16] MEDS: Enoxaparin 40 MG/0.4 ML SYR SUBCUT SCH (16:30)
[2023-01-16] MEDS: HYDROcodone/ACETAMIN 5/325 mg TAB PO PRN ×2 (16:30→23:13)
[2023-01-17] MEDS: Prasugrel 10 mg TAB (NF) PO SCH (09:42)
[2023-01-17] MEDS: Aspirin EC 81 mg TAB.EC (enteric coated) PO SCH (09:42)
[2023-01-17] MEDS: Enoxaparin 40 MG/0.4 ML SYR SUBCUT SCH (19:08)
[2023-01-18 05:32] VITALS: BP 151/76
[2023-01-18] MEDS: Aspirin EC 81 mg TAB.EC (enteric coated) PO SCH (08:47)
[2023-01-18] MEDS: Prasugrel 10 mg TAB (NF) PO SCH (08:48)
[2023-01-18] MEDS: HYDROcodone/ACETAMIN 5/325 mg TAB PO PRN (08:59)
== END 2023-01-18 10:00 | disposition home or self-care (01) | DRG 556 ==
LOC: EDHOLD 10:49 → ED 10:49 → MED 19:13
PROVIDERS: ADMIT Internal Medicine; ATTEND Internal Medicine

== ENCOUNTER 2023-02-02 10:37 | Inpatient (IN) ==
[2023-02-02] MEDS ORDERED: Acetaminophen IV 1 GM/100ML 1,000 MG/100 ML BAG IV ONE (11:12)
[2023-02-02] MEDS ORDERED: Cefepime 2 GM in Dextrose 2 GM/50 ML BAG IV ONE (11:17)
[2023-02-02 11:26] LABS: ABS Lymphocytes 0.6 10^3/uL (1.0-4.8); ABS Monocytes 0.8 10^3/uL (0.0-1.1); ABS Neutrophils 14.5 10^3/uL (1.5-7.6); Eosinophil % 0.3 %; Lymphocyte % 3.5 %; Mean Corpuscular Hemoglobin 26.5 pg (27-33); Mean Corpuscular Hgb Conc 32.5 g/dL (31-36); Mean Corpuscular Volume 81.6 fL (80-97); Mean Platelet Volume 7.8 fL (7.5-11.2); Platelet Count 281 10^3/uL (150-450); Red Cell Distribution Width 17.5 % (12-17); White Blood Count 15.9 10^3/uL (3.6-10.2)
[2023-02-02 11:36] LABS: Activated Partial Thrombo Time 29.2 seconds (26.0-38.0); INR 1.14 (0.88-1.18)
[2023-02-02 12:10] LABS: Albumin 4.2 g/dL (3.2-5.2); Albumin/Globulin Ratio 1.3 (1-3); C Reactive Protein 54.23 mg/L (<8.01); Calcium 8.9 mg/dL (8.6-10.3); Creatinine, Serum 1.11 mg/dL (0.67-1.17); Globulin 3.3 g/dL (2-4); Magnesium 1.6 mg/dL (1.9-2.7); Potassium 3.7 mmol/L (3.5-5.0); Total Bilirubin 0.4 mg/dL (0.2-1.0); Total Protein 7.5 g/dL (6.4-8.9); eGFR CKD-EPI 72.3 (>60)
[2023-02-02] MEDS ORDERED: NS 0.9% 1000 ml BAG 1,000 ML IV ONE (12:18)
[2023-02-02] MEDS ORDERED: Iohexol 350 (CONTRAST) 500 ML MDV IV ONE (12:32)
[2023-02-02 12:50] LABS: High Sensitivity Troponin 1 Hr 28 pg/mL (<20)
[2023-02-02] MEDS ORDERED: fentaNYL 100 mcg/2 ml 50 MCG/ML VIAL IV SLOW PU ONE (13:00)
[2023-02-02] MEDS: Lidocaine 4% GEL 10 GM TUBE TOPICAL ONE ×2 (13:25→13:30)
[2023-02-02 13:50] LABS: Urine Appearance Cloudy; Urine Bilirubin Negative (Negative); Urine Blood Negative (Negative); Urine Color Yellow; Urine Glucose Negative (Negative); Urine Ketones Negative (Negative); Urine Nitrite Negative (Negative); Urine Protein Negative (Negative); Urine Specific Gravity 1.017 (1.002-1.030); Urine Urobilinogen Negative (Negative)
[2023-02-02 14:04] LABS: Urine Bacteria 1+ (Absent); Urine Red Blood Cell 1+(3-5/hpf) (Absent); Urine Squamous Epithelial Cell Present (Absent); Urine White Blood Cell 3+(>20/hpf) (Absent)
[2023-02-02] MEDS: Enoxaparin 40 MG/0.4 ML SYR SUBCUT SCH (15:46)
[2023-02-02] MEDS ORDERED: Magnesium Sulfate IV 3 GM in NS 0.9% 100 ml BAG 100 ML IVPB ONE (16:31)
[2023-02-02] MEDS: HYDROcodone/ACETAMIN 5/325 mg TAB PO PRN ×2 (17:38→22:32)
[2023-02-02] MEDS: Mometasone/Formoter 100/5 MDI INH SCH (18:29)
[2023-02-02] MEDS: Morphine 2 MG/ML SYRINGE IV PRN ×2 (20:01→22:38)
[2023-02-02] MEDS: Aspirin EC 81 mg TAB.EC (enteric coated) PO SCH (22:33)
[2023-02-03] MEDS: Morphine 2 MG/ML SYRINGE IV PRN ×7 (02:03→22:50)
[2023-02-03] MEDS: HYDROcodone/ACETAMIN 5/325 mg TAB PO PRN (02:32)
[2023-02-03] MEDS: Nystatin TOP POWDER 15 GM BTL TOPICAL SCH ×3 (03:25→21:19)
[2023-02-03 03:39] LABS: ABS Lymphocytes 0.7 10^3/uL (1.0-4.8); ABS Monocytes 0.6 10^3/uL (0.0-1.1); ABS Neutrophils 8.7 10^3/uL (1.5-7.6); Hematocrit 36.4 % (38-53); Hemoglobin 12.1 g/dL (13.2-16.3); Lymphocyte % 6.7 %; Mean Corpuscular Hemoglobin 26.9 pg (27-33); Mean Corpuscular Hgb Conc 33.2 g/dL (31-36); Mean Corpuscular Volume 80.8 fL (80-97); Mean Platelet Volume 7.2 fL (7.5-11.2); Platelet Count 231 10^3/uL (150-450); Red Blood Count 4.51 10^6/uL (4.06-5.63); Red Cell Distribution Width 17.9 % (12-17)
[2023-02-03 03:56] LABS: Calcium 8.4 mg/dL (8.6-10.3); Creatinine, Serum 1.26 mg/dL (0.67-1.17); Potassium 3.3 mmol/L (3.5-5.0); eGFR CKD-EPI 62.1 (>60)
[2023-02-03] MEDS: Cefepime 2 GM in Dextrose 2 GM/50 ML BAG IV SCH ×2 (04:45→16:03)
[2023-02-03] MEDS: Mometasone/Formoter 100/5 MDI INH SCH ×2 (07:30→19:02)
[2023-02-03] MEDS: CMCS: Prasugrel 10 mg TAB (NF) PO SCH (10:22)
[2023-02-03] MEDS: Enoxaparin 40 MG/0.4 ML SYR SUBCUT SCH (16:06)
[2023-02-03] MEDS: Senna TAB 8.6 mg TAB PO SCH (21:18)
[2023-02-03] MEDS: Aspirin EC 81 mg TAB.EC (enteric coated) PO SCH (21:18)
[2023-02-03 23:49] LABS: ABS Eosinophils 0.2 10^3/uL (0.0-0.5); ABS Lymphocytes 1.1 10^3/uL (1.0-4.8); ABS Monocytes 0.9 10^3/uL (0.0-1.1); ABS Neutrophils 6.2 10^3/uL (1.5-7.6); ABS Nucleated RBC 0.01 10^3/ul; Eosinophil % 1.8 %; Hematocrit 34.2 % (38-53); Hemoglobin 11.2 g/dL (13.2-16.3); Lymphocyte % 12.9 %; Mean Corpuscular Hemoglobin 26.1 pg (27-33); Mean Corpuscular Hgb Conc 32.8 g/dL (31-36); Mean Corpuscular Volume 79.7 fL (80-97); Mean Platelet Volume 7.4 fL (7.5-11.2); Nucleated Red Blood Cells % 0.1 /100 WBC (0.0-0.4); Platelet Count 214 10^3/uL (150-450); Red Blood Count 4.29 10^6/uL (4.06-5.63); Red Cell Distribution Width 17.1 % (12-17); White Blood Count 8.4 10^3/uL (3.6-10.2)
[2023-02-04 00:05] LABS: Calcium 8.1 mg/dL (8.6-10.3); Creatinine, Serum 1.15 mg/dL (0.67-1.17); Potassium 3.4 mmol/L (3.5-5.0); eGFR CKD-EPI 69.3 (>60)
[2023-02-04] MEDS: Morphine 2 MG/ML SYRINGE IV PRN ×4 (03:17→20:25)
[2023-02-04] MEDS: Cefepime 2 GM in Dextrose 2 GM/50 ML BAG IV SCH ×2 (03:54→15:43)
[2023-02-04] MEDS: HYDROcodone/ACETAMIN 5/325 mg TAB PO PRN ×2 (04:44→12:59)
[2023-02-04] MEDS ORDERED: KCL 20 MEQ/100 ML IVPREMIX 20 MEQ/100 ML BAG IV ONE (05:42)
[2023-02-04] MEDS: Mometasone/Formoter 100/5 MDI INH SCH ×2 (07:20→19:27)
[2023-02-04] MEDS: Polyethylene Glycol 3350 17 GM PACKET PO SCH (09:42)
[2023-02-04] MEDS: CMCS: Prasugrel 10 mg TAB (NF) PO SCH (09:43)
[2023-02-04] MEDS: Nystatin TOP POWDER 15 GM BTL TOPICAL SCH ×2 (09:44→20:26)
[2023-02-04] MEDS: Enoxaparin 40 MG/0.4 ML SYR SUBCUT SCH (15:43)
[2023-02-04] MEDS: Aspirin EC 81 mg TAB.EC (enteric coated) PO SCH (20:24)
[2023-02-04] MEDS: Senna TAB 8.6 mg TAB PO SCH (20:25)
[2023-02-05] MEDS: Morphine 2 MG/ML SYRINGE IV PRN ×2 (02:14→08:15)
[2023-02-05] MEDS: Cefepime 2 GM in Dextrose 2 GM/50 ML BAG IV SCH ×2 (04:03→15:22)
[2023-02-05] MEDS: Mometasone/Formoter 100/5 MDI INH SCH ×2 (06:55→19:54)
[2023-02-05] MEDS: HYDROcodone/ACETAMIN 5/325 mg TAB PO PRN ×2 (07:29→15:22)
[2023-02-05] MEDS: Polyethylene Glycol 3350 17 GM PACKET PO SCH (08:18)
[2023-02-05] MEDS: CMCS: Prasugrel 10 mg TAB (NF) PO SCH (08:19)
[2023-02-05 09:04] LABS: Calcium 8.7 mg/dL (8.6-10.3); Creatinine, Serum 0.86 mg/dL (0.67-1.17); Potassium 3.8 mmol/L (3.5-5.0); eGFR CKD-EPI 94.3 (>60)
[2023-02-05] MEDS: Nystatin TOP POWDER 15 GM BTL TOPICAL SCH ×2 (09:19→21:37)
[2023-02-05] MEDS: Lidocaine PATCH 5% PATCH TRANSDERM SCH (09:20)
[2023-02-05] MEDS ORDERED: Potassium Chlor 20 meq TAB.ER PO ONE (09:32)
[2023-02-05] MEDS: Enoxaparin 40 MG/0.4 ML SYR SUBCUT SCH (15:22)
[2023-02-05] MEDS: Aspirin EC 81 mg TAB.EC (enteric coated) PO SCH (20:30)
[2023-02-05] MEDS: Senna TAB 8.6 mg TAB PO SCH (20:40)
[2023-02-06] MEDS: Morphine 2 MG/ML SYRINGE IV PRN ×3 (02:45→22:47)
[2023-02-06] MEDS: Cefepime 2 GM in Dextrose 2 GM/50 ML BAG IV SCH ×2 (04:02→15:40)
[2023-02-06] MEDS: Mometasone/Formoter 100/5 MDI INH SCH ×2 (06:53→20:51)
[2023-02-06] MEDS: Polyethylene Glycol 3350 17 GM PACKET PO SCH (08:14)
[2023-02-06] MEDS: Lidocaine PATCH 5% PATCH TRANSDERM SCH (08:15)
[2023-02-06] MEDS: CMCS: Prasugrel 10 mg TAB (NF) PO SCH (08:16)
[2023-02-06] MEDS: Nystatin TOP POWDER 15 GM BTL TOPICAL SCH ×2 (08:16→22:47)
[2023-02-06] MEDS: Enoxaparin 40 MG/0.4 ML SYR SUBCUT SCH (15:40)
[2023-02-06] MEDS: HYDROcodone/ACETAMIN 5/325 mg TAB PO PRN (15:49)
[2023-02-06] MEDS: Aspirin EC 81 mg TAB.EC (enteric coated) PO SCH (22:42)
[2023-02-06] MEDS: Senna TAB 8.6 mg TAB PO SCH (22:47)
[2023-02-07] MEDS: Cefepime 2 GM in Dextrose 2 GM/50 ML BAG IV SCH ×2 (04:13→15:20)
[2023-02-07] MEDS: Mometasone/Formoter 100/5 MDI INH SCH ×2 (08:00→19:13)
[2023-02-07] MEDS: Lidocaine PATCH 5% PATCH TRANSDERM SCH (08:47)
[2023-02-07] MEDS: Polyethylene Glycol 3350 17 GM PACKET PO SCH (08:47)
[2023-02-07] MEDS: CMCS: Prasugrel 10 mg TAB (NF) PO SCH (08:47)
[2023-02-07] MEDS: HYDROcodone/ACETAMIN 5/325 mg TAB PO PRN ×2 (08:47→20:58)
[2023-02-07] MEDS: Nystatin TOP POWDER 15 GM BTL TOPICAL SCH ×2 (08:48→20:57)
[2023-02-07] MEDS: Morphine 2 MG/ML SYRINGE IV PRN ×2 (10:31→22:50)
[2023-02-07 11:36] LABS: ABS Eosinophils 0.4 10^3/uL (0.0-0.5); ABS Lymphocytes 1.2 10^3/uL (1.0-4.8); ABS Monocytes 0.5 10^3/uL (0.0-1.1); ABS Neutrophils 4.3 10^3/uL (1.5-7.6); Eosinophil % 5.9 %; Hematocrit 38.7 % (38-53); Hemoglobin 12.7 g/dL (13.2-16.3); Lymphocyte % 18.2 %; Mean Corpuscular Hemoglobin 26.3 pg (27-33); Mean Corpuscular Hgb Conc 32.7 g/dL (31-36); Mean Corpuscular Volume 80.6 fL (80-97); Mean Platelet Volume 6.8 fL (7.5-11.2); Platelet Count 348 10^3/uL (150-450); Red Blood Count 4.81 10^6/uL (4.06-5.63); Red Cell Distribution Width 17.2 % (12-17); White Blood Count 6.4 10^3/uL (3.6-10.2)
[2023-02-07 11:55] LABS: Albumin 3.5 g/dL (3.2-5.2); Albumin/Globulin Ratio 1.1 (1-3); C Reactive Protein 36.75 mg/L (<8.01); Creatinine, Serum 0.97 mg/dL (0.67-1.17); Globulin 3.2 g/dL (2-4); Potassium 4.4 mmol/L (3.5-5.0); Total Bilirubin 0.2 mg/dL (0.2-1.0); Total Protein 6.7 g/dL (6.4-8.9)
[2023-02-07] MEDS ORDERED: fentaNYL 100 mcg/2 ml 50 MCG/ML VIAL ONE ×2 (13:09→13:58)
[2023-02-07] MEDS ORDERED: Midazolam 2 mg/2 ml VIAL 1 mg/ml 2 ml VIAL (2 mg) ONE (13:39)
[2023-02-07] MEDS ORDERED: Flumazenil 0.5 mg/5 ml 0.1 MG/ML 5 ml VIAL IV PRN (16:10)
[2023-02-07] MEDS ORDERED: Midazolam 10 mg/10 ml VIAL 1 mg/ml 10 ml VIAL (10 mg) IV SLOW PU ONE (16:10)
[2023-02-07] MEDS ORDERED: Naloxone 0.4 mg VIAL 0.4 mg/ml 1 ml VIAL IV PUSH PRN (16:10)
[2023-02-07] MEDS ORDERED: fentaNYL 100 mcg/2 ml 50 MCG/ML VIAL IV SLOW PU ONE (16:10)
[2023-02-07] MEDS: Aspirin EC 81 mg TAB.EC (enteric coated) PO SCH (20:55)
[2023-02-07] MEDS: Senna TAB 8.6 mg TAB PO SCH (20:58)
[2023-02-08] MEDS: Cefepime 2 GM in Dextrose 2 GM/50 ML BAG IV SCH (04:10)
[2023-02-08] MEDS: Morphine 2 MG/ML SYRINGE IV PRN ×3 (04:13→21:27)
[2023-02-08] MEDS: Mometasone/Formoter 100/5 MDI INH SCH ×2 (07:10→19:02)
[2023-02-08] MEDS: CMCS: Prasugrel 10 mg TAB (NF) PO SCH (09:38)
[2023-02-08] MEDS: Lidocaine PATCH 5% PATCH TRANSDERM SCH (09:38)
[2023-02-08] MEDS: Polyethylene Glycol 3350 17 GM PACKET PO SCH (09:38)
[2023-02-08] MEDS: Nystatin TOP POWDER 15 GM BTL TOPICAL SCH ×2 (09:39→19:41)
[2023-02-08] MEDS: Enoxaparin 40 MG/0.4 ML SYR SUBCUT SCH (14:04)
[2023-02-08] MEDS: Aspirin EC 81 mg TAB.EC (enteric coated) PO SCH (19:30)
[2023-02-08] MEDS: Senna TAB 8.6 mg TAB PO SCH (19:41)
[2023-02-09] MEDS: HYDROcodone/ACETAMIN 5/325 mg TAB PO PRN ×2 (05:52→19:57)
[2023-02-09 06:13] LABS: Hematocrit 38.1 % (38-53); Hemoglobin 12.6 g/dL (13.2-16.3); Mean Corpuscular Hemoglobin 26.3 pg (27-33); Mean Corpuscular Volume 79.7 fL (80-97); Mean Platelet Volume 7.1 fL (7.5-11.2); Platelet Count 393 10^3/uL (150-450); Red Blood Count 4.77 10^6/uL (4.06-5.63); Red Cell Distribution Width 17.4 % (12-17); White Blood Count 9.4 10^3/uL (3.6-10.2)
[2023-02-09 06:27] LABS: Calcium 9.1 mg/dL (8.6-10.3); Creatinine, Serum 1.28 mg/dL (0.67-1.17); Potassium 4.1 mmol/L (3.5-5.0)
[2023-02-09] MEDS: Mometasone/Formoter 100/5 MDI INH SCH ×2 (07:10→19:47)
[2023-02-09 08:24] LABS: ABS Eosinophils 0.3 10^3/uL (0.0-0.5); ABS Lymphocytes 1.9 10^3/uL (1.0-4.8); ABS Monocytes 0.9 10^3/uL (0.0-1.1); ABS Neutrophils 6.2 10^3/uL (1.5-7.6); ABS Nucleated RBC 0.01 10^3/ul; Eosinophil % 3.6 %; Lymphocyte % 20.1 %; Nucleated Red Blood Cells % 0.1 /100 WBC (0.0-0.4)
[2023-02-09] MEDS: CMCS: Prasugrel 10 mg TAB (NF) PO SCH (08:47)
[2023-02-09] MEDS: Polyethylene Glycol 3350 17 GM PACKET PO SCH (08:47)
[2023-02-09] MEDS: Lidocaine PATCH 5% PATCH TRANSDERM SCH (08:47)
[2023-02-09] MEDS: Nystatin TOP POWDER 15 GM BTL TOPICAL SCH ×2 (08:48→19:58)
[2023-02-09] MEDS ORDERED: Iohexol 350 (CONTRAST) 500 ML MDV IV ONE (12:44)
[2023-02-09] MEDS: Morphine 2 MG/ML SYRINGE IV PRN (15:22)
[2023-02-09] MEDS: Enoxaparin 40 MG/0.4 ML SYR SUBCUT SCH (15:22)
[2023-02-09] MEDS: Aspirin EC 81 mg TAB.EC (enteric coated) PO SCH (19:57)
[2023-02-09] MEDS: Senna TAB 8.6 mg TAB PO SCH (19:57)
[2023-02-10] MEDS: HYDROcodone/ACETAMIN 5/325 mg TAB PO PRN ×2 (01:37→09:13)
[2023-02-10] MEDS: Mometasone/Formoter 100/5 MDI INH SCH ×2 (07:58→19:11)
[2023-02-10] MEDS: Polyethylene Glycol 3350 17 GM PACKET PO SCH (09:12)
[2023-02-10] MEDS: Lidocaine PATCH 5% PATCH TRANSDERM SCH (09:12)
[2023-02-10] MEDS: CMCS: Prasugrel 10 mg TAB (NF) PO SCH (09:12)
[2023-02-10] MEDS: Nystatin TOP POWDER 15 GM BTL TOPICAL SCH ×3 (09:13→21:59)
[2023-02-10] MEDS: CMCS:Mirabegron 25 mg ER TAB (NF) PO SCH (10:56)
[2023-02-10] MEDS ORDERED: fentaNYL 100 mcg/2 ml 50 MCG/ML VIAL ONE (11:21)
[2023-02-10] MEDS: Morphine 2 MG/ML SYRINGE IV PRN ×2 (16:08→21:50)
[2023-02-10] MEDS: Enoxaparin 40 MG/0.4 ML SYR SUBCUT SCH (16:09)
[2023-02-10] MEDS: Aspirin EC 81 mg TAB.EC (enteric coated) PO SCH (21:58)
[2023-02-10] MEDS: Senna TAB 8.6 mg TAB PO SCH (21:59)
[2023-02-11] MEDS: Morphine 2 MG/ML SYRINGE IV PRN ×3 (02:17→20:44)
[2023-02-11] MEDS: Mometasone/Formoter 100/5 MDI INH SCH ×2 (07:57→19:17)
[2023-02-11 08:51] LABS: Hematocrit 39.1 % (38-53); Hemoglobin 12.8 g/dL (13.2-16.3); Mean Corpuscular Hemoglobin 26.6 pg (27-33); Mean Corpuscular Hgb Conc 32.9 g/dL (31-36); Mean Corpuscular Volume 80.9 fL (80-97); Mean Platelet Volume 6.9 fL (7.5-11.2); Platelet Count 440 10^3/uL (150-450); Red Blood Count 4.83 10^6/uL (4.06-5.63); Red Cell Distribution Width 17.3 % (12-17); White Blood Count 10.6 10^3/uL (3.6-10.2)
[2023-02-11 09:10] LABS: Calcium 9.1 mg/dL (8.6-10.3); Creatinine, Serum 1.18 mg/dL (0.67-1.17); eGFR CKD-EPI 67.2 (>60)
[2023-02-11 09:23] LABS: ABS Eosinophils 0.5 10^3/uL (0.0-0.5); ABS Lymphocytes 1.3 10^3/uL (1.0-4.8); ABS Neutrophils 7.8 10^3/uL (1.5-7.6); Eosinophil % 4.4 %; Lymphocyte % 12.2 %; RBC Morphology Normal (Normal)
[2023-02-11] MEDS: Lidocaine PATCH 5% PATCH TRANSDERM SCH (09:38)
[2023-02-11] MEDS: CMCS: Prasugrel 10 mg TAB (NF) PO SCH (09:40)
[2023-02-11] MEDS: Polyethylene Glycol 3350 17 GM PACKET PO SCH (09:41)
[2023-02-11] MEDS: CMCS:Mirabegron 25 mg ER TAB (NF) PO SCH (09:43)
[2023-02-11] MEDS: Nystatin TOP POWDER 15 GM BTL TOPICAL SCH ×2 (09:44→20:45)
[2023-02-11] MEDS: HYDROcodone/ACETAMIN 5/325 mg TAB PO PRN ×3 (09:49→23:37)
[2023-02-11] MEDS: Enoxaparin 40 MG/0.4 ML SYR SUBCUT SCH (16:45)
[2023-02-11] MEDS ORDERED: Iohexol 350 (CONTRAST) 500 ML MDV IV ONE (16:46)
[2023-02-11 17:18] LABS: C Reactive Protein 34.99 mg/L (<8.01)
[2023-02-11] MEDS: Aspirin EC 81 mg TAB.EC (enteric coated) PO SCH (20:44)
[2023-02-11] MEDS: Senna TAB 8.6 mg TAB PO SCH (20:44)
[2023-02-12 06:03] LABS: Hematocrit 37.7 % (38-53); Hemoglobin 12.3 g/dL (13.2-16.3); Mean Corpuscular Hemoglobin 26.2 pg (27-33); Mean Corpuscular Hgb Conc 32.5 g/dL (31-36); Mean Corpuscular Volume 80.6 fL (80-97); Platelet Count 422 10^3/uL (150-450); Red Blood Count 4.68 10^6/uL (4.06-5.63); Red Cell Distribution Width 17.3 % (12-17); White Blood Count 8.2 10^3/uL (3.6-10.2)
[2023-02-12 06:24] LABS: C Reactive Protein 57.82 mg/L (<8.01); Creatinine, Serum 1.22 mg/dL (0.67-1.17); Potassium 4.1 mmol/L (3.5-5.0); eGFR CKD-EPI 64.6 (>60)
[2023-02-12 06:59] LABS: ABS Eosinophils 0.5 10^3/uL (0.0-0.5); ABS Neutrophils 4.5 10^3/uL (1.5-7.6); Eosinophil % 6.7 %; Lymphocyte % 25.1 %
[2023-02-12] MEDS: Mometasone/Formoter 100/5 MDI INH SCH (07:40)
[2023-02-12] MEDS: Lidocaine PATCH 5% PATCH TRANSDERM SCH (09:09)
[2023-02-12] MEDS: Polyethylene Glycol 3350 17 GM PACKET PO SCH (09:09)
[2023-02-12] MEDS: CMCS: Prasugrel 10 mg TAB (NF) PO SCH (09:11)
[2023-02-12] MEDS: CMCS:Mirabegron 25 mg ER TAB (NF) PO SCH (09:13)
[2023-02-12] MEDS: Morphine 2 MG/ML SYRINGE IV PRN (09:46)
[2023-02-12] MEDS: Nystatin TOP POWDER 15 GM BTL TOPICAL SCH (11:26)
[2023-02-12 14:04] VITALS: BP 111/70
== END 2023-02-12 15:00 | disposition home or self-care (01) | DRG 871 ==
LOC: EDHOLD 10:37 → ED 10:37 → SUATTDRO 15:04 → MED 20:13 → SUATTDRO 02-03 13:41
PROVIDERS: ADMIT Internal Medicine; ATTEND Hospitalist

== ENCOUNTER 2023-09-01 17:54 | Inpatient (IN) ==
[2023-09-01 19:01] LABS: ABS Basophils 0.2 10^3/uL (0.0-0.1); ABS Eosinophils 0.2 10^3/uL (0.0-0.5); ABS Lymphocytes 1.3 10^3/uL (1.0-4.8); ABS Neutrophils 6.1 10^3/uL (1.5-7.6); ABS Nucleated RBC 0.01 10^3/ul; Eosinophil % 2.6 %; Hematocrit 48.1 % (38-53); Hemoglobin 16.3 g/dL (13.2-16.3); Lymphocyte % 14.5 %; Mean Corpuscular Hemoglobin 28.6 pg (27-33); Mean Corpuscular Hgb Conc 33.9 g/dL (31-36); Mean Corpuscular Volume 84.4 fL (80-97); Mean Platelet Volume 7.8 fL (7.5-11.2); Nucleated Red Blood Cells % 0.2 %/100WBC (0.0-0.8); Platelet Count 299 10^3/uL (150-450); White Blood Count 8.7 10^3/uL (3.6-10.2)
[2023-09-01] MEDS ORDERED: Lactated Ringers 1000 ml BAG 1,000 ML IV ONE ×2 (19:20→19:22)
[2023-09-01 19:21] LABS: Albumin 4.9 g/dL (3.2-5.2); Albumin/Globulin Ratio 1.4 (1-3); Creatinine, Serum 2.13 mg/dL (0.67-1.17); Globulin 3.6 g/dL (2-4); Magnesium 2.3 mg/dL (1.9-2.7); Potassium 2.6 mmol/L (3.5-5.0); Total Bilirubin 0.5 mg/dL (0.2-1.0); Total Protein 8.5 g/dL (6.4-8.9); Urine Appearance Turbid; Urine Bacteria Absent (Absent); Urine Bilirubin Negative (Negative); Urine Blood 2+ (Negative); Urine Color Red; Urine Glucose Negative (Negative); Urine Ketones Negative (Negative); Urine Nitrite Negative (Negative); Urine Protein 2+(100 mg/dL) (Negative); Urine Red Blood Cell 3+(>10/hpf) (Absent); Urine Specific Gravity 1.009 (1.002-1.030); Urine Urobilinogen Negative (Negative); Urine White Blood Cell 3+(>20/hpf) (Absent); eGFR CKD-EPI 32.9 (>60)
[2023-09-01] MEDS ORDERED: Potassium Chloride LIQUID 20 MEQ/15 ML LIQUID PO ONE ×2 (19:24→19:40)
[2023-09-01 19:47] LABS: TSH Ultra Thyroid Stim Horm 3.49 mcIU/mL (0.34-5.60)
[2023-09-01] MEDS ORDERED: KCL 10 MEQ/50 ML IVPREMIX 10 MEQ/50 ML BAG IV SCH (20:00)
[2023-09-01 20:33] LABS: High Sensitivity Troponin 1 Hr 35 pg/mL (<20)
[2023-09-02 02:09] LABS: Calcium 9.5 mg/dL (8.6-10.3); Creatinine, Serum 1.88 mg/dL (0.67-1.17); Potassium 2.6 mmol/L (3.5-5.0); eGFR CKD-EPI 38.2 (>60)
[2023-09-02] MEDS ORDERED: Potassium Chlor 20 meq TAB.ER PO ONE ×2 (02:28→06:00)
[2023-09-02] MEDS ORDERED: Lactated Ringers 1000 ml BAG 750 ML IV ONE (04:35)
[2023-09-02] MEDS: HYDROcodone/ACETAMIN 5/325 mg TAB PO PRN ×2 (05:01→12:53)
[2023-09-02] MEDS: cefTRIAXone 1 gm/50 mL D5W 1 GM/50 ML BAG IV SCH (06:04)
[2023-09-02 06:31] LABS: ABS Eosinophils 0.2 10^3/uL (0.0-0.5); ABS Lymphocytes 1.6 10^3/uL (1.0-4.8); ABS Monocytes 1.1 10^3/uL (0.0-1.1); ABS Neutrophils 5.9 10^3/uL (1.5-7.6); ABS Nucleated RBC 0.01 10^3/ul; Eosinophil % 2.6 %; Hematocrit 43.8 % (38-53); Hemoglobin 14.8 g/dL (13.2-16.3); Lymphocyte % 17.7 %; Mean Corpuscular Hemoglobin 28.5 pg (27-33); Mean Corpuscular Hgb Conc 33.7 g/dL (31-36); Mean Corpuscular Volume 84.6 fL (80-97); Mean Platelet Volume 7.6 fL (7.5-11.2); Nucleated Red Blood Cells % 0.2 %/100WBC (0.0-0.8); Platelet Count 282 10^3/uL (150-450); Red Blood Count 5.18 10^6/uL (4.06-5.63); White Blood Count 8.8 10^3/uL (3.6-10.2)
[2023-09-02 06:57] LABS: Creatinine, Serum 1.87 mg/dL (0.67-1.17); Potassium 2.6 mmol/L (3.5-5.0); eGFR CKD-EPI 38.4 (>60)
[2023-09-02] MEDS: Mometasone/Formoter 100/5 MDI INH SCH ×2 (07:00→20:31)
[2023-09-02] MEDS ORDERED: NS 0.9% 1000 ml BAG 1,000 ML IV SCH ×2 (08:30→15:00)
[2023-09-02 08:40] LABS: C Reactive Protein 7.53 mg/L (<8.01)
[2023-09-02] MEDS ORDERED: Potassium Chlor 20 meq TAB.ER PO SCH (09:00)
[2023-09-02] MEDS: KCL 20 MEQ/100 ML IVPREMIX 20 MEQ/100 ML BAG IV SCH ×2 (09:48→12:52)
[2023-09-02 12:14] LABS: Hematocrit 44.5 % (38-53); Hemoglobin 14.7 g/dL (13.2-16.3)
[2023-09-02 12:24] LABS: Creatinine, Serum 1.7 mg/dL (0.67-1.17); Potassium 3.1 mmol/L (3.5-5.0); eGFR CKD-EPI 43.1 (>60)
[2023-09-02] MEDS: Potassium Chloride LIQUID 20 MEQ/15 ML LIQUID PO SCH ×5 (12:52→23:00)
[2023-09-02] MEDS ORDERED: hydrALAZINE 20 mg/ml 1 ML Vial IV IV SLOW PU PRN (16:24)
[2023-09-02 17:11] LABS: Calcium 9.4 mg/dL (8.6-10.3); Creatinine, Serum 1.66 mg/dL (0.67-1.17); Potassium 3.8 mmol/L (3.5-5.0); eGFR CKD-EPI 44.3 (>60)
[2023-09-02] MEDS ORDERED: Al Hydrox/Mg Hydrox/Simet LIQ 30 ML UDC PO PRN (23:35)
[2023-09-03] MEDS: HYDROcodone/ACETAMIN 5/325 mg TAB PO PRN ×3 (00:27→16:02)
[2023-09-03] MEDS ORDERED: Morphine 2 MG/ML SYRINGE IV ONE (02:13)
[2023-09-03] MEDS: Potassium Chloride LIQUID 20 MEQ/15 ML LIQUID PO SCH ×3 (02:21→09:07)
[2023-09-03 05:57] LABS: ABS Basophils 0.1 10^3/uL (0.0-0.1); ABS Eosinophils 0.4 10^3/uL (0.0-0.5); ABS Lymphocytes 1.6 10^3/uL (1.0-4.8); ABS Neutrophils 5.6 10^3/uL (1.5-7.6); ABS Nucleated RBC 0.01 10^3/ul; Eosinophil % 4.3 %; Hematocrit 42.7 % (38-53); Hemoglobin 14.5 g/dL (13.2-16.3); Lymphocyte % 18.7 %; Mean Corpuscular Hgb Conc 34.1 g/dL (31-36); Mean Platelet Volume 7.7 fL (7.5-11.2); Nucleated Red Blood Cells % 0.1 %/100WBC (0.0-0.8); Platelet Count 269 10^3/uL (150-450); Red Blood Count 5.02 10^6/uL (4.06-5.63); White Blood Count 8.6 10^3/uL (3.6-10.2)
[2023-09-03] MEDS ORDERED: Polyethylene Glycol 3350 17 GM PACKET PO PRN (06:11)
[2023-09-03] MEDS ORDERED: Magnesium Hydroxide LIQ 30 ML UDC PO PRN (06:11)
[2023-09-03] MEDS ORDERED: Senna TAB 8.6 mg TAB PO PRN (06:11)
[2023-09-03 06:14] LABS: Calcium 9.1 mg/dL (8.6-10.3); Creatinine, Serum 1.45 mg/dL (0.67-1.17); Magnesium 2.3 mg/dL (1.9-2.7); Potassium 4.6 mmol/L (3.5-5.0); eGFR CKD-EPI 52.2 (>60)
[2023-09-03] MEDS: cefTRIAXone 1 gm/50 mL D5W 1 GM/50 ML BAG IV SCH (06:29)
[2023-09-03] MEDS: Mometasone/Formoter 100/5 MDI INH SCH ×2 (07:34→18:32)
[2023-09-03] MEDS ORDERED: Acetaminophen IV 1 GM/100ML 1,000 MG/100 ML BAG IV PRN (18:58)
[2023-09-04] MEDS: HYDROcodone/ACETAMIN 5/325 mg TAB PO PRN ×3 (01:48→20:21)
[2023-09-04] MEDS: cefTRIAXone 1 gm/50 mL D5W 1 GM/50 ML BAG IV SCH (05:46)
[2023-09-04] MEDS: Mometasone/Formoter 100/5 MDI INH SCH ×2 (07:09→19:18)
[2023-09-04 08:23] LABS: ABS Basophils 0.1 10^3/uL (0.0-0.1); ABS Eosinophils 0.4 10^3/uL (0.0-0.5); ABS Lymphocytes 1.6 10^3/uL (1.0-4.8); ABS Monocytes 0.8 10^3/uL (0.0-1.1); ABS Neutrophils 5.5 10^3/uL (1.5-7.6); ABS Nucleated RBC 0.01 10^3/ul; Eosinophil % 4.5 %; Lymphocyte % 19.5 %; Mean Corpuscular Hemoglobin 28.1 pg (27-33); Mean Corpuscular Hgb Conc 32.7 g/dL (31-36); Mean Platelet Volume 7.6 fL (7.5-11.2); Nucleated Red Blood Cells % 0.1 %/100WBC (0.0-0.8); Platelet Count 257 10^3/uL (150-450); Red Cell Distribution Width 16.3 % (12-17); White Blood Count 8.4 10^3/uL (3.6-10.2)
[2023-09-04 08:38] LABS: Calcium 8.9 mg/dL (8.6-10.3); Creatinine, Serum 1.4 mg/dL (0.67-1.17); Magnesium 2.2 mg/dL (1.9-2.7); Potassium 3.6 mmol/L (3.5-5.0); eGFR CKD-EPI 54.4 (>60)
[2023-09-04] MEDS ORDERED: Potassium Chloride LIQUID 20 MEQ/15 ML LIQUID PO ONE ×2 (08:41→18:00)
[2023-09-04] MEDS: Lidocaine PATCH 5% PATCH TRANSDERM SCH ×2 (09:16→09:55)
[2023-09-05] MEDS: cefTRIAXone 1 gm/50 mL D5W 1 GM/50 ML BAG IV SCH (05:25)
[2023-09-05] MEDS: HYDROcodone/ACETAMIN 5/325 mg TAB PO PRN ×3 (05:33→22:01)
[2023-09-05 06:39] LABS: ABS Eosinophils 0.4 10^3/uL (0.0-0.5); ABS Lymphocytes 1.6 10^3/uL (1.0-4.8); ABS Monocytes 0.7 10^3/uL (0.0-1.1); ABS Neutrophils 5.8 10^3/uL (1.5-7.6); ABS Nucleated RBC 0.01 10^3/ul; Eosinophil % 4.6 %; Hematocrit 42.9 % (38-53); Hemoglobin 14.3 g/dL (13.2-16.3); Lymphocyte % 19.1 %; Mean Corpuscular Hemoglobin 28.7 pg (27-33); Mean Corpuscular Hgb Conc 33.3 g/dL (31-36); Mean Corpuscular Volume 86.1 fL (80-97); Mean Platelet Volume 7.6 fL (7.5-11.2); Nucleated Red Blood Cells % 0.1 %/100WBC (0.0-0.8); Platelet Count 259 10^3/uL (150-450); Red Blood Count 4.99 10^6/uL (4.06-5.63); White Blood Count 8.6 10^3/uL (3.6-10.2)
[2023-09-05 06:54] LABS: Creatinine, Serum 1.42 mg/dL (0.67-1.17); Magnesium 2.1 mg/dL (1.9-2.7); Potassium 3.6 mmol/L (3.5-5.0); eGFR CKD-EPI 53.5 (>60)
[2023-09-05] MEDS: Mometasone/Formoter 100/5 MDI INH SCH ×2 (08:05→19:35)
[2023-09-05] MEDS: KCL 20 MEQ/100 ML IVPREMIX 20 MEQ/100 ML BAG IV SCH ×2 (08:45→14:57)
[2023-09-05] MEDS: Lidocaine PATCH 5% PATCH TRANSDERM SCH (08:45)
[2023-09-05] MEDS ORDERED: Dexamethasone IV 4 MG/ML VIAL 1 ml VIAL ONE ×2 (09:52→11:34)
[2023-09-05] MEDS ORDERED: Lidocaine 2% PF 5 ML VIAL ONE ×2 (09:52→10:26)
[2023-09-05] MEDS ORDERED: Propofol 10 MG/ML 20 ML BTL ONE ×2 (09:52→10:25)
[2023-09-05] MEDS ORDERED: Ondansetron 4 mg VIAL 2 MG/ML 2 ml VIAL ONE ×2 (09:52→11:34)
[2023-09-05] MEDS ORDERED: fentaNYL 100 mcg/2 ml 50 MCG/ML VIAL ONE ×2 (09:53→13:34)
[2023-09-05] MEDS ORDERED: Midazolam 2 mg/2 ml VIAL 1 mg/ml 2 ml VIAL (2 mg) ONE ×2 (09:53→10:23)
[2023-09-05] MEDS ORDERED: fentaNYL 250 mcg/5 ml 50 MCG/ML 5 ml VIAL (250 MCG) ONE (10:24)
[2023-09-05] MEDS ORDERED: Rocuronium 50 mg VIAL 10 mg/ml 5 ml VIAL (50 mg) ONE (10:26)
[2023-09-05] MEDS ORDERED: Acetaminophen IV 1 GM/100ML 1,000 MG/100 ML BAG IV ONE (11:30)
[2023-09-05] MEDS ORDERED: Metoclopramide 5 MG/ML VIAL (10 mg) IV PRN (13:37)
[2023-09-05] MEDS ORDERED: Naloxone 0.4 mg VIAL 0.4 mg/ml 1 ml VIAL IV PRN (13:37)
[2023-09-05] MEDS ORDERED: Ondansetron 4 mg VIAL 2 MG/ML 2 ml VIAL IV PRN (13:37)
[2023-09-06] MEDS: cefTRIAXone 1 gm/50 mL D5W 1 GM/50 ML BAG IV SCH (05:38)
[2023-09-06 05:44] LABS: ABS Monocytes 0.8 10^3/uL (0.0-1.1); ABS Neutrophils 10.7 10^3/uL (1.5-7.6); ABS Nucleated RBC 0.01 10^3/ul; Hematocrit 41.7 % (38-53); Hemoglobin 13.8 g/dL (13.2-16.3); Lymphocyte % 8.3 %; Mean Corpuscular Hemoglobin 28.5 pg (27-33); Mean Corpuscular Hgb Conc 33.2 g/dL (31-36); Mean Corpuscular Volume 85.9 fL (80-97); Mean Platelet Volume 7.6 fL (7.5-11.2); Nucleated Red Blood Cells % 0.1 %/100WBC (0.0-0.8); Platelet Count 274 10^3/uL (150-450); Red Blood Count 4.85 10^6/uL (4.06-5.63); Red Cell Distribution Width 16.3 % (12-17); White Blood Count 12.6 10^3/uL (3.6-10.2)
[2023-09-06 05:58] LABS: Calcium 8.6 mg/dL (8.6-10.3); Creatinine, Serum 1.42 mg/dL (0.67-1.17); Magnesium 2.2 mg/dL (1.9-2.7); Potassium 4.6 mmol/L (3.5-5.0); eGFR CKD-EPI 53.5 (>60)
[2023-09-06] MEDS: Lidocaine PATCH 5% PATCH TRANSDERM SCH (07:50)
[2023-09-06] MEDS: HYDROcodone/ACETAMIN 5/325 mg TAB PO PRN ×2 (07:53→21:20)
[2023-09-06] MEDS: Mometasone/Formoter 100/5 MDI INH SCH ×2 (08:58→21:13)
[2023-09-07 05:58] LABS: ABS Basophils 0.1 10^3/uL (0.0-0.1); ABS Eosinophils 0.3 10^3/uL (0.0-0.5); ABS Lymphocytes 1.7 10^3/uL (1.0-4.8); ABS Monocytes 0.9 10^3/uL (0.0-1.1); ABS Neutrophils 8.3 10^3/uL (1.5-7.6); ABS Nucleated RBC 0.01 10^3/ul; Eosinophil % 2.3 %; Hematocrit 41.2 % (38-53); Hemoglobin 13.7 g/dL (13.2-16.3); Lymphocyte % 14.9 %; Mean Corpuscular Hemoglobin 28.8 pg (27-33); Mean Corpuscular Hgb Conc 33.3 g/dL (31-36); Mean Corpuscular Volume 86.5 fL (80-97); Mean Platelet Volume 7.6 fL (7.5-11.2); Nucleated Red Blood Cells % 0.1 %/100WBC (0.0-0.8); Platelet Count 255 10^3/uL (150-450); Red Blood Count 4.77 10^6/uL (4.06-5.63); White Blood Count 11.2 10^3/uL (3.6-10.2)
[2023-09-07 06:14] LABS: Calcium 8.6 mg/dL (8.6-10.3); Creatinine, Serum 1.24 mg/dL (0.67-1.17); Potassium 4.1 mmol/L (3.5-5.0); eGFR CKD-EPI 62.9 (>60)
[2023-09-07] MEDS: Lidocaine PATCH 5% PATCH TRANSDERM SCH (07:45)
[2023-09-07] MEDS: HYDROcodone/ACETAMIN 5/325 mg TAB PO PRN (07:49)
[2023-09-07] MEDS: Mometasone/Formoter 100/5 MDI INH SCH (08:01)
[2023-09-07 10:43] VITALS: BP 111/65
== END 2023-09-07 13:47 | disposition home or self-care (01) | DRG 669 ==
LOC: ED 17:54 → EDHOLD 17:54 → SUATTDRO 21:25 → MEDTELE 09-02 01:08 → SSU 09-02 13:55 → SUATTDRO 09-03 13:52
PROVIDERS: ADMIT Internal Medicine; ATTEND Student in an Organized Health Care Education/Training Program

== ENCOUNTER 2023-10-15 17:32 | Inpatient (IN) ==
[2023-10-15 18:54] LABS: ABS Monocytes 1.2 10^3/uL (0.0-1.1); ABS Neutrophils 13.7 10^3/uL (1.5-7.6); ABS Nucleated RBC 0.01 10^3/ul; Eosinophil % 0.1 %; Hematocrit 48.1 % (38-53); Lymphocyte % 6.3 %; Mean Corpuscular Hemoglobin 28.3 pg (27-33); Mean Corpuscular Hgb Conc 33.3 g/dL (31-36); Mean Corpuscular Volume 84.8 fL (80-97); Mean Platelet Volume 7.6 fL (7.5-11.2); Platelet Count 261 10^3/uL (150-450); Red Blood Count 5.67 10^6/uL (4.06-5.63); Red Cell Distribution Width 15.1 % (12-17); White Blood Count 15.9 10^3/uL (3.6-10.2)
[2023-10-15 18:57] LABS: Urine Appearance Turbid; Urine Color Dark-Red
[2023-10-15 19:00] LABS: INR 0.94 (0.83-1.13)
[2023-10-15 19:12] LABS: Albumin 4.3 g/dL (3.2-5.2); Albumin/Globulin Ratio 1.5 (1-3); Calcium 9.4 mg/dL (8.6-10.3); Creatinine, Serum 2.03 mg/dL (0.67-1.17); Globulin 2.9 g/dL (2-4); Potassium 3.3 mmol/L (3.5-5.0); Total Bilirubin 0.5 mg/dL (0.2-1.0); Total Protein 7.2 g/dL (6.4-8.9); eGFR CKD-EPI 34.8 (>60)
[2023-10-15 19:17] LABS: Urine Specific Gravity 1.012 (1.002-1.030)
[2023-10-15 20:19] LABS: Urine Bacteria Absent /HPF (Absent); Urine Red Blood Cell 3+(>10/hpf) /HPF (0-Trace); Urine White Blood Cell 2+(11-20/hpf) /HPF (0-Trace)
[2023-10-15] MEDS ORDERED: Ondansetron 4 mg VIAL 2 MG/ML 2 ml VIAL IV PRN (22:27)
[2023-10-15] MEDS ORDERED: HYDROcodone/ACETAMIN 5/325 mg TAB PO PRN (22:52)
[2023-10-15] MEDS: cefTRIAXone 1 gm/50 mL D5W 1 GM/50 ML BAG IV ONE (23:30)
[2023-10-15] MEDS: cefTRIAXone 1 gm/50 mL D5W 1 GM/50 ML BAG IV SCH (23:51)
[2023-10-16 00:06] LABS: Magnesium 2.3 mg/dL (1.9-2.7)
[2023-10-16] MEDS: Potassium Chlor 20 meq TAB.ER PO SCH (00:06)
[2023-10-16] MEDS: KCL 20 MEQ/100 ML IVPREMIX 20 MEQ/100 ML BAG IV ONE (01:59)
[2023-10-16] MEDS: Lactated Ringers 1000 ml BAG 1,000 ML IV SCH ×3 (01:59→22:16)
[2023-10-16 04:12] LABS: ABS Basophils 0.1 10^3/uL (0.0-0.1); ABS Lymphocytes 1.3 10^3/uL (1.0-4.8); ABS Monocytes 1.5 10^3/uL (0.0-1.1); ABS Neutrophils 16.8 10^3/uL (1.5-7.6); ABS Nucleated RBC 0.02 10^3/ul; Eosinophil % 0.2 %; Hematocrit 47.9 % (38-53); Hemoglobin 16.4 g/dL (13.2-16.3); Lymphocyte % 6.6 %; Mean Corpuscular Hemoglobin 28.8 pg (27-33); Mean Corpuscular Hgb Conc 34.2 g/dL (31-36); Mean Corpuscular Volume 84.3 fL (80-97); Mean Platelet Volume 7.8 fL (7.5-11.2); Nucleated Red Blood Cells % 0.1 %/100WBC (0.0-0.8); Platelet Count 252 10^3/uL (150-450); Red Blood Count 5.69 10^6/uL (4.06-5.63); Red Cell Distribution Width 15.5 % (12-17); White Blood Count 19.7 10^3/uL (3.6-10.2)
[2023-10-16] MEDS: HYDROcodone/ACETAMIN 5/325 mg TAB PO PRN (04:24)
[2023-10-16 04:30] LABS: Albumin/Globulin Ratio 1.4 (1-3); Calcium 8.8 mg/dL (8.6-10.3); Creatinine, Serum 1.93 mg/dL (0.67-1.17); Globulin 2.9 g/dL (2-4); Total Bilirubin 0.8 mg/dL (0.2-1.0); Total Protein 6.9 g/dL (6.4-8.9)
[2023-10-16] MEDS: Mometasone/Formoter 100/5 MDI INH SCH (07:53)
[2023-10-16] MEDS: OMEGA DHA EPA FISH OIL PO SCH (08:27)
[2023-10-16 10:31] LABS: Calcium 8.8 mg/dL (8.6-10.3); Creatinine, Serum 2.18 mg/dL (0.67-1.17); Potassium 2.9 mmol/L (3.5-5.0)
[2023-10-16] MEDS: Lactated Ringers 1000 ml BAG 1,000 ML IV ONE (15:00)
[2023-10-16] MEDS: Al Hydrox/Mg Hydrox/Simet LIQ 30 ML UDC PO ONE (15:29)
[2023-10-16] MEDS: KCL 20 MEQ/100 ML IVPREMIX 20 MEQ/100 ML BAG IV SCH (16:09)
[2023-10-16] MEDS ORDERED: Vancomycin 1,000 MG in NS 0.9% 250 ml 250 ML IVPB ONE (18:52)
[2023-10-16] MEDS ORDERED: Zosyn per Pharmacy NOTE FOLLOW UP SCH (19:00)
[2023-10-16] MEDS ORDERED: Vancomycin per Pharmacy 1 EA NOTE FOLLOW UP SCH (19:00)
[2023-10-16] MEDS ORDERED: Vancomycin 1,500 MG in NS 0.9% 250 ml 250 ML IVPB ONE (19:30)
[2023-10-16] MEDS: Piperacillin/Tazobac 3.375 BAG 3.375 GM/100 ML BAG IV ONE (22:58)
[2023-10-16] MEDS: LACTATED RINGERS IV ONE (23:15)
[2023-10-17] MEDS: NS 0.9% 1000 ml BAG 1,000 ML IV SCH (01:27)
[2023-10-17] MEDS ORDERED: ZOSYN 3.375 GM Q8H per EXTENDED INFUSION IV SCH (03:00)
[2023-10-17] MEDS: Cefepime 2 GM in Dextrose 2 GM/50 ML BAG IV SCH (05:29)
[2023-10-17 06:12] LABS: Hematocrit 39.8 % (38-53); Hemoglobin 13.3 g/dL (13.2-16.3); Mean Corpuscular Hemoglobin 28.4 pg (27-33); Mean Corpuscular Hgb Conc 33.5 g/dL (31-36); Mean Corpuscular Volume 84.9 fL (80-97); Mean Platelet Volume 7.6 fL (7.5-11.2); Platelet Count 193 10^3/uL (150-450); Red Blood Count 4.69 10^6/uL (4.06-5.63); Red Cell Distribution Width 15.4 % (12-17); White Blood Count 14.7 10^3/uL (3.6-10.2)
[2023-10-17 06:33] LABS: Calcium 8.1 mg/dL (8.6-10.3); Creatinine, Serum 1.62 mg/dL (0.67-1.17); Potassium 3.2 mmol/L (3.5-5.0); eGFR CKD-EPI 45.7 (>60)
[2023-10-17] MEDS: ZOSYN 3.375 GM Q8H per EXTENDED INFUSION IV SCH (08:01)
[2023-10-17] MEDS: KCL 20 MEQ/100 ML IVPREMIX 20 MEQ/100 ML BAG IV SCH (10:35)
[2023-10-17] MEDS: CMC:Mirabegron 25 mg ER TAB (NF) PO SCH (13:42)
[2023-10-18 06:41] LABS: Hematocrit 37.7 % (38-53); Hemoglobin 12.6 g/dL (13.2-16.3); Mean Corpuscular Hgb Conc 33.5 g/dL (31-36); Mean Corpuscular Volume 86.4 fL (80-97); Mean Platelet Volume 7.3 fL (7.5-11.2); Platelet Count 164 10^3/uL (150-450); Red Blood Count 4.36 10^6/uL (4.06-5.63); Red Cell Distribution Width 15.4 % (12-17); White Blood Count 10.3 10^3/uL (3.6-10.2)
[2023-10-18 07:59] LABS: Calcium 7.8 mg/dL (8.6-10.3); Creatinine, Serum 1.13 mg/dL (0.67-1.17); Magnesium 2.1 mg/dL (1.9-2.7); Potassium 3.7 mmol/L (3.5-5.0); eGFR CKD-EPI 70.4 (>60)
[2023-10-18] MEDS: KCL 20 MEQ/100 ML IVPREMIX 20 MEQ/100 ML BAG IV SCH (09:44)
[2023-10-18] MEDS: OMEGA-3 FATTY ACID 1000 mg(NF) PO SCH (09:51)
[2023-10-19 05:52] LABS: ABS Basophils 0.1 10^3/uL (0.0-0.1); ABS Eosinophils 0.4 10^3/uL (0.0-0.5); ABS Lymphocytes 1.3 10^3/uL (1.0-4.8); ABS Monocytes 0.8 10^3/uL (0.0-1.1); ABS Neutrophils 7.4 10^3/uL (1.5-7.6); Hematocrit 37.6 % (38-53); Hemoglobin 12.4 g/dL (13.2-16.3); Lymphocyte % 12.9 %; Mean Corpuscular Hemoglobin 28.7 pg (27-33); Mean Corpuscular Hgb Conc 32.9 g/dL (31-36); Mean Corpuscular Volume 87.5 fL (80-97); Mean Platelet Volume 7.8 fL (7.5-11.2); Platelet Count 193 10^3/uL (150-450); Red Cell Distribution Width 15.4 % (12-17)
[2023-10-19 06:05] LABS: Calcium 7.9 mg/dL (8.6-10.3); Creatinine, Serum 0.95 mg/dL (0.67-1.17); Magnesium 1.9 mg/dL (1.9-2.7); Potassium 4.1 mmol/L (3.5-5.0); eGFR CKD-EPI 86.6 (>60)
[2023-10-19] MEDS: Magnesium Sulfate 2 gm BAG 2 GM/50 ML BAG IVPB ONE (10:48)
[2023-10-19 15:20] VITALS: BP 130/58
== END 2023-10-19 17:15 | disposition home or self-care (01) | DRG 698 ==
LOC: ED 17:32 → EDHOLD 22:27 → SUATTDRO 22:27 → SSU 10-16 11:52
PROVIDERS: ADMIT Internal Medicine; ATTEND Student in an Organized Health Care Education/Training Program

== ENCOUNTER 2023-12-24 09:35 | Inpatient (IN) ==
[2023-12-24 10:13] LABS: Hematocrit 43.5 % (38-53); Hemoglobin 14.1 g/dL (13.2-16.3); Mean Corpuscular Hemoglobin 27.7 pg (27-33); Mean Corpuscular Hgb Conc 32.5 g/dL (31-36); Mean Corpuscular Volume 85.4 fL (80-97); Mean Platelet Volume 7.1 fL (7.5-11.2); Platelet Count 292 10^3/uL (150-450); Red Blood Count 5.09 10^6/uL (4.06-5.63); Red Cell Distribution Width 16.4 % (12-17); White Blood Count 23.1 10^3/uL (3.6-10.2)
[2023-12-24] MEDS: Lactated Ringers 1000 ml BAG 1,000 ML IV ONE ×2 (10:17→11:29)
[2023-12-24 10:26] LABS: Activated Partial Thrombo Time 27.9 seconds (26.0-38.0); INR 1.04 (0.83-1.13)
[2023-12-24 10:41] LABS: Albumin/Globulin Ratio 1.7 (1-3); C Reactive Protein 68.74 mg/L (<8.01); Calcium 9.3 mg/dL (8.6-10.3); Creatinine, Serum 1.88 mg/dL (0.67-1.17); Globulin 2.3 g/dL (2-4); Potassium 3.9 mmol/L (3.5-5.0); Total Bilirubin 0.6 mg/dL (0.2-1.0); Total Protein 6.3 g/dL (6.4-8.9); eGFR CKD-EPI 38.2 (>60)
[2023-12-24 11:08] LABS: ABS Basophils 0.1 10^3/uL (0.0-0.1); ABS Lymphocytes 0.3 10^3/uL (1.0-4.8); ABS Monocytes 1.3 10^3/uL (0.0-1.1); ABS Neutrophils 21.3 10^3/uL (1.5-7.6); Eosinophil % 0.2 %; Lymphocyte % 1.5 %
[2023-12-24] MEDS: Piperacillin/Tazobac 3.375 BAG 3.375 GM/100 ML BAG IV ONE (11:31)
[2023-12-24 11:49] LABS: High Sensitivity Troponin 1 Hr 31 pg/mL (<20)
[2023-12-24 11:54] LABS: Venous Bicarbonate HCO3 30.2 mmol/L (24-28)
[2023-12-24] MEDS: Iodixanol (CONTRAST) 320 MG/ML 100 ML SDV IV ONE (12:34)
[2023-12-24 15:11] LABS: Hematocrit 39.6 % (38-53); Mean Corpuscular Hemoglobin 27.9 pg (27-33); Mean Corpuscular Hgb Conc 32.8 g/dL (31-36); Platelet Count 282 10^3/uL (150-450); Red Blood Count 4.66 10^6/uL (4.06-5.63); Red Cell Distribution Width 16.4 % (12-17); White Blood Count 22.8 10^3/uL (3.6-10.2)
[2023-12-24] MEDS ORDERED: Zosyn per Pharmacy NOTE FOLLOW UP PRN (15:17)
[2023-12-24 15:19] LABS: Activated Partial Thrombo Time 26.7 seconds (26.0-38.0); INR 1.09 (0.83-1.13)
[2023-12-24 15:20] LABS: Urine Appearance Turbid; Urine Bilirubin Negative (Negative); Urine Blood 2+ (Negative); Urine Color Yellow; Urine Glucose Negative (Negative); Urine Ketones Negative (Negative); Urine Nitrite 1+ (Negative); Urine Protein 1+ (>=30 mg/dL) (Negative); Urine Specific Gravity 1.027 (1.002-1.030); Urine Urobilinogen Negative (Negative)
[2023-12-24 15:25] LABS: Urine Bacteria 1+ /HPF (Absent); Urine Red Blood Cell 2+(6-10/hpf) /HPF (0-Trace); Urine White Blood Cell 3+(>20/hpf) /HPF (0-Trace)
[2023-12-24 15:50] LABS: ABS Basophils 0.1 10^3/uL (0.0-0.1); ABS Lymphocytes 0.6 10^3/uL (1.0-4.8); ABS Monocytes 1.4 10^3/uL (0.0-1.1); ABS Neutrophils 20.7 10^3/uL (1.5-7.6); ABS Nucleated RBC 0.04 10^3/ul; Lymphocyte % 2.6 %; Nucleated Red Blood Cells % 0.2 %/100WBC (0.0-0.8)
[2023-12-24] MEDS: Heparin 5000 UNITS/ML 1 mL VIAL SUBCUT SCH (15:59)
[2023-12-24] MEDS: ZOSYN 3.375 GM Q8H per EXTENDED INFUSION IV SCH (15:59)
[2023-12-24 16:03] LABS: Creatinine, Serum 1.84 mg/dL (0.67-1.17); eGFR CKD-EPI 39.2 (>60)
[2023-12-24] MEDS ORDERED: Potassium Chlor 20 meq TAB.ER PO SCH (21:00)
[2023-12-24] MEDS: Potassium Chlor 20 meq TAB.ER PO SCH (21:56)
[2023-12-25] MEDS: Potassium Chlor 20 meq TAB.ER PO SCH (00:07)
[2023-12-25 05:27] LABS: Hematocrit 37.4 % (38-53); Hemoglobin 12.5 g/dL (13.2-16.3); Mean Corpuscular Hemoglobin 28.5 pg (27-33); Mean Corpuscular Hgb Conc 33.4 g/dL (31-36); Mean Corpuscular Volume 85.3 fL (80-97); Platelet Count 269 10^3/uL (150-450); Red Blood Count 4.38 10^6/uL (4.06-5.63); Red Cell Distribution Width 16.5 % (12-17); White Blood Count 11.1 10^3/uL (3.6-10.2)
[2023-12-25 05:45] LABS: Calcium 8.6 mg/dL (8.6-10.3); Creatinine, Serum 1.81 mg/dL (0.67-1.17); Magnesium 1.9 mg/dL (1.9-2.7); Potassium 3.4 mmol/L (3.5-5.0)
[2023-12-25] MEDS: HYDROcodone/ACETAMIN 5/325 mg TAB PO PRN ×2 (10:50→16:02)
[2023-12-25] MEDS ORDERED: HYDROcodone/ACETAMIN 5/325 mg TAB PO PRN (12:39)
[2023-12-25] MEDS: HYDROcodone/ACETAMIN 5/325 mg TAB ONE (16:06)
[2023-12-25] MEDS: Heparin 5000 UNITS/ML 1 mL VIAL SUBCUT SCH (20:25)
[2023-12-26 06:19] LABS: Hematocrit 37.6 % (38-53); Hemoglobin 12.5 g/dL (13.2-16.3); Mean Corpuscular Hemoglobin 28.7 pg (27-33); Mean Corpuscular Hgb Conc 33.3 g/dL (31-36); Mean Corpuscular Volume 86.1 fL (80-97); Red Blood Count 4.37 10^6/uL (4.06-5.63); Red Cell Distribution Width 16.8 % (12-17); White Blood Count 11.1 10^3/uL (3.6-10.2)
[2023-12-26 06:40] LABS: Calcium 8.5 mg/dL (8.6-10.3); Creatinine, Serum 1.79 mg/dL (0.67-1.17); Magnesium 1.9 mg/dL (1.9-2.7); eGFR CKD-EPI 40.5 (>60)
[2023-12-26 07:31] LABS: ABS Basophils 0.1 10^3/uL (0.0-0.1); ABS Eosinophils 0.4 10^3/uL (0.0-0.5); ABS Lymphocytes 1.7 10^3/uL (1.0-4.8); ABS Monocytes 1.1 10^3/uL (0.0-1.1); ABS Neutrophils 7.8 10^3/uL (1.5-7.6); ABS Nucleated RBC 0.01 10^3/ul; Eosinophil % 3.4 %; Lymphocyte % 15.5 %; Mean Platelet Volume 6.9 fL (7.5-11.2); Nucleated Red Blood Cells % 0.1 %/100WBC (0.0-0.8); Platelet Count 256 10^3/uL (150-450)
[2023-12-27 07:58] LABS: ABS Eosinophils 0.4 10^3/uL (0.0-0.5); ABS Lymphocytes 1.4 10^3/uL (1.0-4.8); ABS Monocytes 0.7 10^3/uL (0.0-1.1); ABS Neutrophils 5.9 10^3/uL (1.5-7.6); Eosinophil % 5.1 %; Hematocrit 39.8 % (38-53); Hemoglobin 13.1 g/dL (13.2-16.3); Lymphocyte % 16.2 %; Mean Corpuscular Hemoglobin 28.3 pg (27-33); Mean Corpuscular Hgb Conc 32.9 g/dL (31-36); Mean Corpuscular Volume 85.9 fL (80-97); Mean Platelet Volume 6.9 fL (7.5-11.2); Platelet Count 316 10^3/uL (150-450); Red Blood Count 4.64 10^6/uL (4.06-5.63); Red Cell Distribution Width 16.5 % (12-17); White Blood Count 8.4 10^3/uL (3.6-10.2)
[2023-12-27 10:40] LABS: Calcium 8.9 mg/dL (8.6-10.3); Creatinine, Serum 1.53 mg/dL (0.67-1.17); Potassium 4.3 mmol/L (3.5-5.0); eGFR CKD-EPI 48.9 (>60)
[2023-12-27 17:03] VITALS: BP 110/54
== END 2023-12-27 19:49 | disposition home or self-care (01) | DRG 698 ==
LOC: ED 09:35 → EDHOLD 11:59 → SUATTDRO 11:59 → ICU 12:46 → MED 12-25 17:21
PROVIDERS: ADMIT Internal Medicine; ATTEND Internal Medicine

== ENCOUNTER 2024-04-14 15:50 | Inpatient (IN) ==
[2024-04-14 17:20] LABS: ABS Basophils 0.1 10^3/uL (0.0-0.1); ABS Eosinophils 0.3 10^3/uL (0.0-0.5); ABS Lymphocytes 1.4 10^3/uL (1.0-4.8); ABS Monocytes 1.2 10^3/uL (0.0-1.1); ABS Neutrophils 8.9 10^3/uL (1.5-7.6); ABS Nucleated RBC 0.01 10^3/ul; Eosinophil % 2.9 %; Hematocrit 45.4 % (38-53); Hemoglobin 14.8 g/dL (13.2-16.3); Lymphocyte % 11.7 %; Mean Corpuscular Hemoglobin 27.7 pg (27-33); Mean Corpuscular Hgb Conc 32.7 g/dL (31-36); Mean Corpuscular Volume 84.7 fL (80-97); Mean Platelet Volume 6.9 fL (7.5-11.2); Nucleated Red Blood Cells % 0.1 %/100WBC (0.0-0.8); Platelet Count 353 10^3/uL (150-450); Red Blood Count 5.36 10^6/uL (4.06-5.63); Red Cell Distribution Width 15.8 % (12-17); White Blood Count 11.9 10^3/uL (3.6-10.2)
[2024-04-14] MEDS: Lactated Ringers 1000 ml BAG 1,000 ML IV ONE ×2 (17:48→20:39)
[2024-04-14 18:05] LABS: Urine Appearance No Cx Clear (Clear); Urine Bilirubin No Culture Negative (Negative); Urine Blood No Culture Negative (Negative); Urine Color No Culture Light-Yellow; Urine Glucose No Culture Negative (Negative); Urine Ketones No Culture Negative (Negative); Urine Leukocytes No Culture 500 (3+) Leu/uL (Negative); Urine Nitrite No Culture Negative (Negative); Urine Protein No Culture Negative (Negative); Urine Specific Gravity No Cx 1.008 (1.002-1.030); Urine Urobilinogen No Cx Negative (Negative); Urine pH No Culture 6.5 (5.0-8.0)
[2024-04-14 18:36] LABS: Ur Squamous Epithelial No Cx Present /HPF (Absent); Urine Bacteria No Culture Absent /HPF (Absent); Urine Red Blood Cell No Cult Trace(0-2/hpf) /HPF (0-Trace); Urine White Blood Cell No Cult 3+(>20/hpf) /HPF (0-Trace)
[2024-04-14 19:36] LABS: Erythrocyte Sed Rate 35 mm/Hr (0-19)
[2024-04-14] MEDS: Clindamycin 600 MG/D5W BAG 600 MG/50 ML BAG IV ONE (20:04)
[2024-04-14 20:54] LABS: Albumin 4.5 g/dL (3.2-5.2); Albumin/Globulin Ratio 1.5 (1-3); C Reactive Protein 81.69 mg/L (<8.01); Calcium 10.1 mg/dL (8.6-10.3); Creatinine, Serum 2.32 mg/dL (0.67-1.17); Total Bilirubin 0.4 mg/dL (0.2-1.0); Total Protein 7.5 g/dL (6.4-8.9); eGFR CKD-EPI 29.7 (>60)
[2024-04-14] MEDS: Piperacillin/Tazobac 3.375 BAG 3.375 GM/100 ML BAG IV ONE (21:34)
[2024-04-15] MEDS: Cefepime 1 GM in Dextrose 1 GM/50 ML BAG IV ONE (00:38)
[2024-04-15] MEDS: Morphine 4 MG/ML VIAL (1 ml) IV ONE (01:55)
[2024-04-15 04:45] LABS: ABS Basophils 0.1 10^3/uL (0.0-0.1); ABS Eosinophils 0.3 10^3/uL (0.0-0.5); ABS Lymphocytes 1.7 10^3/uL (1.0-4.8); ABS Monocytes 1.1 10^3/uL (0.0-1.1); ABS Neutrophils 7.7 10^3/uL (1.5-7.6); ABS Nucleated RBC 0.01 10^3/ul; Eosinophil % 2.5 %; Hematocrit 42.5 % (38-53); Hemoglobin 13.9 g/dL (13.2-16.3); Lymphocyte % 15.5 %; Mean Corpuscular Hemoglobin 27.7 pg (27-33); Mean Corpuscular Hgb Conc 32.7 g/dL (31-36); Mean Corpuscular Volume 84.9 fL (80-97); Mean Platelet Volume 6.8 fL (7.5-11.2); Nucleated Red Blood Cells % 0.1 %/100WBC (0.0-0.8); Platelet Count 320 10^3/uL (150-450); Red Blood Count 5.01 10^6/uL (4.06-5.63); White Blood Count 10.8 10^3/uL (3.6-10.2)
[2024-04-15 05:11] LABS: INR 1.03 (0.83-1.13)
[2024-04-15 05:19] LABS: Creatinine, Serum 2.35 mg/dL (0.67-1.17); eGFR CKD-EPI 29.2 (>60)
[2024-04-15] MEDS: Heparin 5000 UNITS/ML 1 mL VIAL SUBCUT SCH (05:42)
[2024-04-15] MEDS ORDERED: Senna TAB 8.6 mg TAB PO PRN (06:06)
[2024-04-15 08:14] LABS: High Sensitivity Troponin 1 Hr 25 pg/mL (<20)
[2024-04-15] MEDS ORDERED: Potassium Chlor 20 meq TAB.ER PO SCH (09:00)
[2024-04-15] MEDS: Mometasone/Formoter 100/5 MDI INH SCH (09:06)
[2024-04-15] MEDS: cefTRIAXone 1 gm/50 mL D5W 1 GM/50 ML BAG IV SCH (11:41)
[2024-04-15 12:15] LABS: Calcium 9.2 mg/dL (8.6-10.3); Creatinine, Serum 2.21 mg/dL (0.67-1.17); Magnesium 2.1 mg/dL (1.9-2.7); Phosphorus 4.2 mg/dL (2.5-5.0); Potassium 2.9 mmol/L (3.5-5.0); eGFR CKD-EPI 31.5 (>60)
[2024-04-15] MEDS: DOXYcycline 100 MG in NS 0.9% 250 ml 250 ML IVPB SCH (12:39)
[2024-04-15] MEDS: Potassium Chlor 20 meq TAB.ER PO SCH (13:35)
[2024-04-15] MEDS: HYDROcodone/ACETAMIN 5/325 mg TAB PO PRN (21:44)
[2024-04-15] MEDS: Sulfur Hexaflouride MICROSPHR 25 MG VIAL IV ONE (21:54)
[2024-04-15] MEDS: Morphine 2 MG/ML SYRINGE IV ONE (23:12)
[2024-04-16] MEDS ORDERED: HYDROcodone/ACETAMIN 5/325 mg TAB PO PRN (02:15)
[2024-04-16 05:51] LABS: Calcium 9.6 mg/dL (8.6-10.3); Creatinine, Serum 2.14 mg/dL (0.67-1.17); Potassium 3.2 mmol/L (3.5-5.0); eGFR CKD-EPI 32.7 (>60)
[2024-04-16] MEDS: HYDROcodone/ACETAMIN 5/325 mg TAB PO PRN (08:10)
[2024-04-16] MEDS: Potassium Chlor 20 meq TAB.ER PO SCH (09:33)
[2024-04-16] MEDS: HYDROmorphone 0.5 MG/0.5 ML SYRINGE IV SLOW PU PRN (11:52)
[2024-04-16] MEDS: Nystatin TOP POWDER 15 GM BTL TOPICAL SCH (14:11)
[2024-04-17 05:30] LABS: Hematocrit 42.4 % (38-53); Hemoglobin 13.6 g/dL (13.2-16.3); Mean Corpuscular Hemoglobin 27.4 pg (27-33); Mean Corpuscular Volume 85.4 fL (80-97); Mean Platelet Volume 6.8 fL (7.5-11.2); Platelet Count 334 10^3/uL (150-450); Red Blood Count 4.96 10^6/uL (4.06-5.63); Red Cell Distribution Width 16.1 % (12-17); White Blood Count 12.7 10^3/uL (3.6-10.2)
[2024-04-17 05:38] LABS: ABS Lymphocytes 1.6 10^3/uL (1.0-4.8); ABS Monocytes 1.6 10^3/uL (0.0-1.1); ABS Neutrophils 9.5 10^3/uL (1.5-7.6); ABS Nucleated RBC 0.02 10^3/ul; Eosinophil % 0.3 %; Lymphocyte % 12.6 %; Nucleated Red Blood Cells % 0.1 %/100WBC (0.0-0.8)
[2024-04-17 05:40] LABS: Calcium 9.4 mg/dL (8.6-10.3); Creatinine, Serum 1.8 mg/dL (0.67-1.17); eGFR CKD-EPI 40.2 (>60)
[2024-04-17 08:15] LABS: C Reactive Protein 112.76 mg/L (<8.01)
[2024-04-17] MEDS: Zinc Oxide 40% (TOPICAL) TUBE TOPICAL SCH (09:15)
[2024-04-17] MEDS: Triamcinolone Acetonide 40 mg VIAL 40 mg/ml 1 ml VIAL INTRAARTIC ONE (11:45)
[2024-04-17] MEDS: HYDROcodone/ACETAMIN 5/325 mg TAB PO PRN (14:05)
[2024-04-18 06:33] LABS: ABS Eosinophils 0.1 10^3/uL (0.0-0.5); ABS Lymphocytes 1.8 10^3/uL (1.0-4.8); ABS Monocytes 1.1 10^3/uL (0.0-1.1); ABS Neutrophils 10.3 10^3/uL (1.5-7.6); ABS Nucleated RBC 0.01 10^3/ul; Eosinophil % 0.4 %; Hematocrit 42.3 % (38-53); Hemoglobin 13.8 g/dL (13.2-16.3); Lymphocyte % 13.8 %; Mean Corpuscular Hemoglobin 27.8 pg (27-33); Mean Corpuscular Hgb Conc 32.5 g/dL (31-36); Mean Corpuscular Volume 85.5 fL (80-97); Mean Platelet Volume 6.8 fL (7.5-11.2); Nucleated Red Blood Cells % 0.1 %/100WBC (0.0-0.8); Platelet Count 354 10^3/uL (150-450); Red Blood Count 4.94 10^6/uL (4.06-5.63); Red Cell Distribution Width 16.2 % (12-17); White Blood Count 13.3 10^3/uL (3.6-10.2)
[2024-04-18 07:15] LABS: Calcium 9.3 mg/dL (8.6-10.3); Creatinine, Serum 1.52 mg/dL (0.67-1.17); Magnesium 2.2 mg/dL (1.9-2.7); Potassium 4.5 mmol/L (3.5-5.0); eGFR CKD-EPI 49.3 (>60)
[2024-04-18] MEDS: HYDROcodone/ACETAMIN 5/325 mg TAB PO PRN (08:39)
[2024-04-18 09:12] LABS: C Reactive Protein 75.76 mg/L (<8.01)
[2024-04-19 08:08] LABS: Hematocrit 45.8 % (38-53); Mean Corpuscular Hemoglobin 28.1 pg (27-33); Mean Corpuscular Hgb Conc 32.7 g/dL (31-36); Platelet Count 371 10^3/uL (150-450); Red Blood Count 5.32 10^6/uL (4.06-5.63); Red Cell Distribution Width 16.5 % (12-17); White Blood Count 13.6 10^3/uL (3.6-10.2)
[2024-04-19 08:36] LABS: Creatinine, Serum 1.51 mg/dL (0.67-1.17); Potassium 4.4 mmol/L (3.5-5.0); eGFR CKD-EPI 49.7 (>60)
[2024-04-19 08:42] LABS: ABS Basophils 0.1 10^3/uL (0.0-0.1); ABS Eosinophils 0.1 10^3/uL (0.0-0.5); ABS Monocytes 1.1 10^3/uL (0.0-1.1); ABS Neutrophils 10.5 10^3/uL (1.5-7.6); ABS Nucleated RBC 0.01 10^3/ul; Eosinophil % 0.4 %; Lymphocyte % 14.6 %; Nucleated Red Blood Cells % 0.1 %/100WBC (0.0-0.8)
[2024-04-19 09:16] LABS: C Reactive Protein 31.57 mg/L (<8.01)
[2024-04-19] MEDS: HYDROcodone/ACETAMIN 5/325 mg TAB PO PRN (16:14)
[2024-04-24 06:08] LABS: Hematocrit 46.3 % (38-53); Hemoglobin 14.8 g/dL (13.2-16.3); Mean Corpuscular Hemoglobin 27.3 pg (27-33); Mean Corpuscular Hgb Conc 31.9 g/dL (31-36); Mean Corpuscular Volume 85.6 fL (80-97); Mean Platelet Volume 7.1 fL (7.5-11.2); Platelet Count 378 10^3/uL (150-450); Red Blood Count 5.41 10^6/uL (4.06-5.63); White Blood Count 14.4 10^3/uL (3.6-10.2)
[2024-04-24 06:48] LABS: Calcium 9.2 mg/dL (8.6-10.3); Creatinine, Serum 1.51 mg/dL (0.67-1.17); Magnesium 2.1 mg/dL (1.9-2.7); Potassium 4.5 mmol/L (3.5-5.0); eGFR CKD-EPI 49.7 (>60)
[2024-04-24 07:26] LABS: ABS Basophils 0.1 10^3/uL (0.0-0.1); ABS Lymphocytes 2.2 10^3/uL (1.0-4.8); ABS Monocytes 0.9 10^3/uL (0.0-1.1); ABS Neutrophils 11.2 10^3/uL (1.5-7.6); ABS Nucleated RBC 0.01 10^3/ul; Eosinophil % 0.2 %; Lymphocyte % 15.5 %; Nucleated Red Blood Cells % 0.1 %/100WBC (0.0-0.8)
[2024-04-25 05:56] LABS: Hematocrit 45.1 % (38-53); Hemoglobin 14.8 g/dL (13.2-16.3); Mean Corpuscular Hgb Conc 32.8 g/dL (31-36); Mean Corpuscular Volume 85.5 fL (80-97); Mean Platelet Volume 7.3 fL (7.5-11.2); Platelet Count 366 10^3/uL (150-450); Red Blood Count 5.27 10^6/uL (4.06-5.63); Red Cell Distribution Width 16.5 % (12-17); White Blood Count 14.1 10^3/uL (3.6-10.2)
[2024-04-25 06:12] LABS: Calcium 9.4 mg/dL (8.6-10.3); Creatinine, Serum 1.59 mg/dL (0.67-1.17); Magnesium 2.1 mg/dL (1.9-2.7); Potassium 4.1 mmol/L (3.5-5.0); eGFR CKD-EPI 46.7 (>60)
[2024-04-25 06:42] LABS: ABS Eosinophils 0.1 10^3/uL (0.0-0.5); ABS Lymphocytes 2.7 10^3/uL (1.0-4.8); ABS Neutrophils 10.2 10^3/uL (1.5-7.6); ABS Nucleated RBC 0.01 10^3/ul; Eosinophil % 0.4 %; Lymphocyte % 19.5 %; Nucleated Red Blood Cells % 0.1 %/100WBC (0.0-0.8)
[2024-04-25 09:55] VITALS: BP 112/73
== END 2024-04-25 11:44 | disposition home health service (06) | DRG 871 ==
LOC: EDHOLD 15:50 → ED 15:50 → SUATTDRO 04-15 01:45 → OBSVTOIN 04-15 01:45 → EDHOLD 04-15 18:07 → MED 04-15 19:38
PROVIDERS: ADMIT Internal Medicine; ATTEND Student in an Organized Health Care Education/Training Program

== ENCOUNTER 2024-06-22 10:04 | Inpatient (IN) ==
[2024-06-22] MEDS: Lactated Ringers 1000 ml BAG 1,000 ML IV ONE (10:57)
[2024-06-22 11:24] LABS: ABS Eosinophils 0.2 10^3/uL (0.0-0.5); ABS Lymphocytes 1.1 10^3/uL (1.0-4.8); ABS Monocytes 0.9 10^3/uL (0.0-1.1); ABS Neutrophils 9.1 10^3/uL (1.5-7.6); Hematocrit 43.5 % (38-53); Hemoglobin 14.4 g/dL (13.2-16.3); Lymphocyte % 9.9 %; Mean Corpuscular Hemoglobin 28.3 pg (27-33); Mean Corpuscular Volume 85.7 fL (80-97); Mean Platelet Volume 7.1 fL (7.5-11.2); Platelet Count 272 10^3/uL (150-450); Red Blood Count 5.08 10^6/uL (4.06-5.63); White Blood Count 11.4 10^3/uL (3.6-10.2)
[2024-06-22 11:54] LABS: ALT 22 U/L (7-52); AST 18 U/L (13-39); Albumin/Globulin Ratio 1.7 (1-3); Alkaline Phosphatase 45 U/L (35-149); Anion Gap 13 mmol/L (2-16); C Reactive Protein 47.52 mg/L (<8.01); CO2 Carbon Dioxide 25 mmol/L (22-32); Calcium 9.5 mg/dL (8.6-10.3); Chloride 88 mmol/L (101-111); Creatinine, Serum 2.73 mg/dL (0.67-1.17); Globulin 2.4 g/dL (2-4); Glucose 178 mg/dL (70-100); Potassium 4.1 mmol/L (3.5-5.0); Sodium 126 mmol/L (135-145); Total Bilirubin 0.4 mg/dL (0.2-1.0); Total Protein 6.4 g/dL (6.4-8.9); eGFR CKD-EPI 24.4 (>60)
[2024-06-22 12:09] LABS: Blood Urea Nitrogen > 120 mg/dL (6-24)
[2024-06-22 14:32] LABS: Urine Appearance Turbid; Urine Bilirubin Negative (Negative); Urine Blood Negative (Negative); Urine Color Yellow; Urine Glucose Negative (Negative); Urine Ketones Negative (Negative); Urine Nitrite Negative (Negative); Urine Protein Negative (Negative); Urine Specific Gravity 1.012 (1.002-1.030); Urine Urobilinogen Negative (Negative); Urine pH 6.5 (5.0-8.0)
[2024-06-22 14:43] LABS: Urine Bacteria 2+ /HPF (Absent); Urine Red Blood Cell 2+(6-10/hpf) /HPF (0-Trace); Urine Squamous Epithelial Cell Present /HPF (Absent); Urine White Blood Cell 3+(>20/hpf) /HPF (0-Trace)
[2024-06-22] MEDS: NS 0.9% 1000 ml BAG 1,000 ML IV SCH ×2 (18:33→20:25)
[2024-06-22] MEDS: HYDROcodone/ACETAMIN 5/325 mg TAB PO PRN (19:17)
[2024-06-22] MEDS: cefTRIAXone 1 gm/50 mL D5W 1 GM/50 ML BAG IV SCH (19:17)
[2024-06-22] MEDS: Heparin 5000 UNITS/ML 1 mL VIAL SUBCUT SCH (21:21)
[2024-06-22 21:36] LABS: Osmolality Serum 320 mOsm/kg (275-295)
[2024-06-23] MEDS: Magic MouthWash2-BEN/MAAL/LIDO/NYST 240 ML BTL (alt formulation) SWISH SPIT ONE (06:24)
[2024-06-23 06:58] LABS: ABS Basophils 0.1 10^3/uL (0.0-0.1); ABS Eosinophils 0.2 10^3/uL (0.0-0.5); ABS Lymphocytes 1.1 10^3/uL (1.0-4.8); ABS Monocytes 0.9 10^3/uL (0.0-1.1); ABS Neutrophils 7.9 10^3/uL (1.5-7.6); Hematocrit 41.8 % (38-53); Hemoglobin 13.7 g/dL (13.2-16.3); Lymphocyte % 10.8 %; Mean Corpuscular Hemoglobin 28.3 pg (27-33); Mean Corpuscular Hgb Conc 32.9 g/dL (31-36); Mean Corpuscular Volume 85.9 fL (80-97); Mean Platelet Volume 6.8 fL (7.5-11.2); Platelet Count 281 10^3/uL (150-450); Red Blood Count 4.86 10^6/uL (4.06-5.63); Red Cell Distribution Width 16.7 % (12-17); White Blood Count 10.2 10^3/uL (3.6-10.2)
[2024-06-23 07:37] LABS: Calcium 8.8 mg/dL (8.6-10.3); Magnesium 2.8 mg/dL (1.9-2.7); Potassium 3.8 mmol/L (3.5-5.0); eGFR CKD-EPI 35.5 (>60)
[2024-06-23] MEDS: Aspirin EC 81 mg TAB.EC (enteric coated) PO SCH (10:09)
[2024-06-23] MEDS: Influenza Vaccine *TRI* 2024-25* 0.5 ML SYRINGE IM ONE (11:49)
[2024-06-23] MEDS: COVID VAC 24-25 (12+) (Moderna) Syringe 0.5 mL IM ONE (13:04)
[2024-06-23] MEDS: Magic MouthWash2-BEN/MAAL/LIDO/NYST 240 ML BTL (alt formulation) SWISH SPIT SCH (13:15)
[2024-06-23] MEDS ORDERED: Zosyn per Pharmacy NOTE FOLLOW UP SCH (16:00)
[2024-06-23] MEDS: ZOSYN 3.375 GM x ONE DOSE over 30 miuntes IV (17:32)
[2024-06-23] MEDS: methylPREDNISolone SOD SUCC 40 mg/ml 1 ml VIAL IV ONE (18:26)
[2024-06-23] MEDS: cefTRIAXone 1 gm/50 mL D5W 1 GM/50 ML BAG IV SCH (19:37)
[2024-06-23] MEDS: metroNIDAZOLE IV 500 MG/100ML 500 MG/100 ML BAG IVPB SCH (21:28)
[2024-06-23] MEDS ORDERED: ZOSYN 3.375 GM Q8H per EXTENDED INFUSION IV SCH (21:30)
[2024-06-24 07:17] LABS: ABS Lymphocytes 0.3 10^3/uL (1.0-4.8); ABS Monocytes 0.1 10^3/uL (0.0-1.1); ABS Neutrophils 5.8 10^3/uL (1.5-7.6); Hematocrit 43.9 % (38-53); Hemoglobin 14.4 g/dL (13.2-16.3); Lymphocyte % 5.5 %; Mean Corpuscular Hemoglobin 28.3 pg (27-33); Mean Corpuscular Hgb Conc 32.9 g/dL (31-36); Mean Corpuscular Volume 86.1 fL (80-97); Mean Platelet Volume 6.6 fL (7.5-11.2); Platelet Count 299 10^3/uL (150-450); Red Cell Distribution Width 17.2 % (12-17); White Blood Count 6.2 10^3/uL (3.6-10.2)
[2024-06-24 07:28] LABS: Calcium 9.3 mg/dL (8.6-10.3); Creatinine, Serum 1.77 mg/dL (0.67-1.17); Magnesium 2.6 mg/dL (1.9-2.7); Potassium 3.7 mmol/L (3.5-5.0); eGFR CKD-EPI 41.1 (>60)
[2024-06-24] MEDS: Cefepime 1 GM in Dextrose 1 GM/50 ML BAG IV SCH (08:20)
[2024-06-25 07:23] LABS: ABS Eosinophils 0.3 10^3/uL (0.0-0.5); ABS Lymphocytes 1.3 10^3/uL (1.0-4.8); ABS Monocytes 0.9 10^3/uL (0.0-1.1); ABS Neutrophils 9.1 10^3/uL (1.5-7.6); ABS Nucleated RBC 0.01 10^3/ul; Eosinophil % 2.3 %; Hematocrit 41.4 % (38-53); Hemoglobin 13.5 g/dL (13.2-16.3); Lymphocyte % 11.4 %; Mean Corpuscular Hemoglobin 28.1 pg (27-33); Mean Corpuscular Hgb Conc 32.5 g/dL (31-36); Mean Corpuscular Volume 86.5 fL (80-97); Mean Platelet Volume 6.6 fL (7.5-11.2); Nucleated Red Blood Cells % 0.1 %/100WBC (0.0-0.8); Platelet Count 266 10^3/uL (150-450); Red Blood Count 4.79 10^6/uL (4.06-5.63); Red Cell Distribution Width 16.9 % (12-17); White Blood Count 11.6 10^3/uL (3.6-10.2)
[2024-06-25] MEDS: Gadoteridol (CONTRAST) 279.3 MG/ML 10 ML IV ONE (22:27)
[2024-06-26 06:45] LABS: ABS Eosinophils 0.4 10^3/uL (0.0-0.5); ABS Lymphocytes 1.4 10^3/uL (1.0-4.8); ABS Monocytes 0.9 10^3/uL (0.0-1.1); ABS Neutrophils 5.5 10^3/uL (1.5-7.6); Eosinophil % 5.2 %; Hematocrit 42.5 % (38-53); Hemoglobin 13.7 g/dL (13.2-16.3); Mean Corpuscular Hemoglobin 28.2 pg (27-33); Mean Corpuscular Hgb Conc 32.3 g/dL (31-36); Mean Corpuscular Volume 87.2 fL (80-97); Mean Platelet Volume 6.3 fL (7.5-11.2); Platelet Count 267 10^3/uL (150-450); Red Blood Count 4.87 10^6/uL (4.06-5.63); Red Cell Distribution Width 17.1 % (12-17); White Blood Count 8.3 10^3/uL (3.6-10.2)
[2024-06-26 07:23] LABS: Calcium 8.8 mg/dL (8.6-10.3); Creatinine, Serum 1.47 mg/dL (0.67-1.17); Magnesium 2.1 mg/dL (1.9-2.7); Potassium 3.4 mmol/L (3.5-5.0); eGFR CKD-EPI 51.3 (>60)
[2024-06-26] MEDS: Potassium Chlor 20 meq TAB.ER PO ONE (08:21)
[2024-06-26] MEDS ORDERED: Dextrose 50% Syringe 50 ml 25 GM/50 ML SYRINGE IV PUSH PRN (15:34)
[2024-06-27 13:38] VITALS: BP 122/80
== END 2024-06-27 15:50 | disposition home or self-care (01) | DRG 638 ==
LOC: ED 10:04 → EDHOLD 10:04 → MED 17:15
PROVIDERS: ADMIT Internal Medicine; ATTEND Internal Medicine